=== PATIENT | female | born 1935 | race Caucasian/White ===

== ENCOUNTER 2017-01-16 13:57 | Inpatient (IN) | payer MEDICARE ==
[~2017-01-16 13:57] MED LIST: ALBUTEROL HFA 1 INH INHALER INHALATION PRN; GLYCERIN ADULT 2 GM SUPP.RECT PR PRN; HOME MEDICATION LIST NEEDED 1 EA EACH MC ONE; MAG-AL PLUS XS SUSP 30 ML UDC PO PRN; MAGNESIUM HYDROXIDE 30 ML UDC PO PRN; METHIMAZOLE 5 MG PO SCH; TIOTROPIUM BROMIDE 18 MCG CAP.W.DEV INHALATION SCH
[2017-01-16] MEDS ORDERED: GLYCERIN ADULT 2 GM SUPP.RECT RECTAL PRN (14:24)
[2017-01-16] MEDS ORDERED: SENNOSIDES 8.6 MG TABLET PO ONE (15:14)
[2017-01-16] MEDS: POLYETHYLENE GLYCOL 3350 17 GM POWD.PACK PO PRN (15:30)
[2017-01-16] MEDS: FLUTICASONE/SALMETEROL 250/50 14 INH DISK INHALATION SCH ×2 (15:31→21:47)
[2017-01-16] MEDS: CLOTRIMAZOLE 10 MG TROCHE MUCOUS MEM SCH ×2 (15:54→20:02)
--- NOTE | 2017-01-16 15:57 | HISTORY & PHYSICAL ---
DATE OF ADMISSION TO [facility] BED: 01/16/17 PRIMARY CARE PHYSICIAN: Dr. Will. REASON FOR TRANSFER: Proximity to family status post total knee replacement by Dr. Alfonso with prior rehab care at [facility]. HISTORY OF PRESENT ILLNESS: Briefly, the patient is a 81-year-old lady with a history of brain aneurysm times 2, fibromyalgia, asthma, atrial fibrillation, prior breast masses, COPD, GERD, recurrent urinary tract infections, back surgery, carotid endarterectomy, hysterectomy, a right TKA now status post left TKA, left hip arthroplasty and prior tonsillectomy, who also has rheumatoid arthritis and a history of uterine cancer. Because of worsening arthritis and decreased mobility, she underwent left total knee arthroplasty by Dr. Anuj Alfonso at [facility] and was hospitalized from the through the and then subsequently transferred to the [facility] for rehabilitation. She and her daughter know that she has chronic dysphagia and intermittent emesis they initially attributed to gabapentin. Dr. Will her primary care physician had decreased the gabapentin from 300 mg t.i.d. to 100 mg t.i.d. and this largely helped though was noted to have intermittent dysphagia and emesis though without blood or coffee-ground emesis intermittently throughout the day. There is no globus sensation and despite the emesis she is still able to tolerate a regular diet. It is noted that she has some abdominal fullness and discomfort and per her history last bowel movement was prior to surgery on the . She did receive Milk of Magnesia without benefit. She was initially treated with Lovenox to decrease her risk of perioperative DVT as well because her warfarin was held perioperatively which she takes for atrial fibrillation as stroke prevention. She has resumed Coumadin at 1 mg daily and most recent INR was on January 14 and was 2.6 within therapeutic range. She had adequate pain control with oxycodone though notes that if she does not take it regularly she does have increasing pain and then takes an hour for oxycodone to work and has requested a scheduled dose as well as a p.r.n. dose. There is no fever, no cough, no cold, congestion, and remainder of review of systems is per HPI. PAST MEDICAL HISTORY: Notable for 1. Cerebral aneurysms times 2. 2. Bullous emphysema with prior heavy smoking but quit in October of 2015. 3. Prior stroke in the 1970s. 4. Coronary artery calcification but no prior infarction and no angina symptoms. 5. Mixed COPD. 6. Dysphagia that is partly related to GERD as well as may be med related. 7. Rumination. 8. Fibromyalgia. 9. Left hip arthroplasty. 10. Right knee arthroplasty. 11. A history of uterine cancer. 12. Hypoxemia related to COPD on chronic oxygen. 13. Bilateral breast masses biopsied and benign. 14. Mixed dyslipidemia. 15. Rheumatoid arthritis. 16. Recurrent thrush. ALLERGIES: She is allergic to codeine but tolerates oxycodone and has no hives or pruritus since taking this at her acute rehab facility. FAMILY HISTORY: Notable for father passing away from myocardial infarction at age 97 and her mother had Alzheimers disease. SOCIAL HISTORY: She drinks 2 drinks about every 5 months. Lives in [place] and currently lives with her daughter though did have a home in [place]. Prior 20+ pack year smoking history though quit October 2015. MEDICATIONS: Include Advair 250/50 mcg, 1 inhalation b.i.d. Aspirin 81 mg daily. Previously was atorvastatin 80 mg daily, changed to Crestor 40 mg daily. Gabapentin 100 mg t.i.d. though recently changed to 200 mg h.s. Protonix 40 mg q. morning. Oxygen 3 liters by nasal cannula. Spiriva 1 inhalation in the morning. ProAir 2 puffs q.4h as needed for shortness of breath. Warfarin 1 mg daily with most recent INR as described above January 14 of 2.6. Seroquel 50 mg at h.s. Tapazole 50 mg daily query started for hyperthyroidism. Tramadol 50 mg q.6h p.r.n. PHYSICAL EXAMINATION VITAL SIGNS: Temp is 36.4, blood pressure in the 140s/50s, with heart rate in the 80s, respiratory rate 16, satting 93% on 3 liters. Her weight is 79.5 kg. GENERAL: She is pleasant, no apparent distress. No jaundice, anemia, cyanosis , clubbing or lymphadenopathy appreciated. NECK: Supple. No masses or bruits. She does have scars from prior carotid endarterectomy. CARDIAC: S1, S2 with a soft murmur and right upper sternal border radiation to right carotid but with maintained upstroke consistent with aortic sclerosis and possible mild stenosis. RESPIRATORY: Shows good air entry to the basis but prolonged expiratory phase consistent with obstructive lung disease. No adventitial sounds otherwise noted. She has no sacral edema. ABDOMEN: Distended. She is nontender in the right lower and right upper quadrant though left flank and left lower quadrant she has palpable stool with discomfort to palpation. No further masses appreciated and bowel sounds are present. EXTREMITIES: She has 2+ edema in her left lower extremity and trace edema in the right lower extremity. The dressings from her TKA are in place and have not been changed since surgery. ASSESSMENT 1. Need for acute rehabilitation. 2. Status post left total knee replacement. 3. Query hyperthyroidism on Tapazole. 4. Acute on chronic constipation with history of irritable bowel syndrome. 5. Persistent emesis with dysphagia and components of rumination likely related to depression. 6. COPD mixed type on oxygen for hypoxia. 7. Fibromyalgia. 8. History of rheumatoid arthritis not on disease modifying anti-rheumatic drugs. 9. Recurrent thrush. 10. Dyslipidemia. PLAN: Will continue her usual medications, followup INR and dose adjust warfarin to maintain therapeutic INR for perioperative DVT prophylaxis as well as for stroke prevention with atrial fibrillation. She is not currently on rate controlling medications but is sinus rhythm and will continue to follow vitals and consider EKG and/or telemetry if needed. Regarding her dysphagia, rumination and possible history of globus, although no current globus sensation , will request an esophagram with barium upper GI. Have continued her oxygen and pulmonary medications including Spiriva and Advair with intermittent ProAir as needed. Have amended her gabapentin after discussion with her daughter to 200 mg h.s. as they feel this contributes some to her nausea and emesis. Scheduled q.8h. oxycodone in addition to her p.r.n. tramadol and p.r.n. oxycodone doses. With her constipation, have requested p.r.n. MiraLax and will schedule Senokot as well. PT/OT evaluations for evaluation and treatment and will change dressing, and to say the patient will require less than a weeks worth of therapy prior to being able to transition home. MTDD
[2017-01-16] MEDS ORDERED: WARFARIN SODIUM 2 MG TABLET PO SCH (16:00)
[2017-01-16 19:55] LABS: URINE RBC NONE SEEN (0-5/hpf)
[2017-01-16] MEDS: traMADol HCL 50 MG TABLET PO PRN (20:02)
[2017-01-16 20:09] LABS: URINE APPEARANCE CLEAR; URINE BILIRUBIN NEGATIVE (NEGATIVE); URINE BLOOD NEGATIVE (NEGATIVE); URINE COLOR YELLOW; URINE GLUCOSE NORMAL (NEGATIVE); URINE KETONE NEGATIVE (NEGATIVE); URINE LEUKOCYTE ESTERASE NEGATIVE (NEGATIVE); URINE NITRITE NEGATIVE (NEGATIVE); URINE PROTEIN NEGATIVE (NEG - TRACE); URINE UROBILINOGEN 0.2mg/dL (Normal) (NEG-1mg/dL)
[2017-01-16 20:10] LABS: URINE MUCUS UP TO 50%/lpf (Up to 25%); URINE WBC 0-4/hpf (0-4/hpf)
[2017-01-16] MEDS ORDERED: QUETIAPINE FUMARATE 100 MG TABLET PO SCH (21:00)
[2017-01-16] MEDS: ROSUVASTATIN CALCIUM 20 MG TABLET PO SCH (21:42)
[2017-01-16] MEDS: GABAPENTIN 100 MG CAPSULE PO SCH ×2 (21:43→23:03)
[2017-01-16] MEDS: QUETIAPINE FUMARATE 25 MG TABLET PO SCH (21:43)
[2017-01-17] MEDS: CLOTRIMAZOLE 10 MG TROCHE MUCOUS MEM SCH ×5 (03:58→20:14)
[2017-01-17] MEDS: PANTOPRAZOLE 40 MG TABLET PO SCH (06:07)
[2017-01-17 07:47] LABS: INR W/O CAPI DRAW 1.2 (0.8-1.2)
[2017-01-17 07:57] LABS: BASOPHILS 0.5 % (0.0-2.0); EOSINOPHILS 5.1 % (0.0-6.0); EOSINOPHILS# 0.4 X 10^3uL (0.0-0.4); HEMATOCRIT 25.4 % (36.0-48.0); HEMOGLOBIN 8.2 g/dL (12.0-16.0); LYMPHOCYTES 23.7 % (20.0-40.0); MEAN CELL VOLUME 85.7 fL (80.0-100.0); MEAN CORPUS. HGB CONCENTRATION 32.4 g/dL (32.0-36.0); MEAN CORPUSCULAR HEMOGLOBIN 27.8 pg (29.0-35.0); MEAN PLATELET VOLUME 6.5 fL (7.4-10.4); MONOCYTES 10.7 % (2.0-10.0); MONOCYTES# 0.9 X 10^3uL (0.2-1.0); NEUTROPHILS# 5.3 X 10^3uL (2.6-6.7); PLATELET COUNT 474 X 10^3uL (130-440); RED CELL DISTRIBUTION WIDTH 13.6 % (11.5-14.5); WHITE BLOOD COUNT 8.6 X 10^3uL (3.9-10.7)
[2017-01-17 08:11] LABS: RED BLOOD COUNT 2.96 X 10^6uL (4.20-6.10)
[2017-01-17 08:28] LABS: ALBUMIN 3.1 g/dL (3.5-5.0); ALKALINE PHOSPHATASE 94 U/L (38-126); ALT 36 U/L (9-52); AST 19 U/L (14-36); BILIRUBIN, DIRECT 0.3 mg/dL (0.0-0.4); BILIRUBIN, TOTAL 0.9 mg/dL (0.2-1.3); BLOOD UREA NITROGEN 13 mg/dL (7-17); CALCIUM 8.7 mg/dL (8.4-10.2); CHLORIDE 105 mmol/L (98-107); CREATININE 0.8 mg/dL (0.5-1.0); EST GLOMERULAR FILTRATION RATE > 60 mL/min; GLUCOSE 87 mg/dL (70-100); POTASSIUM 4.5 mmol/L (3.5-5.1); SODIUM 140 mmol/L (137-145); TOTAL PROTEIN 6.1 g/dL (6.3-8.2)
[2017-01-17] MEDS: FLUTICASONE/SALMETEROL 250/50 14 INH DISK INHALATION SCH ×2 (08:34→20:14)
[2017-01-17] MEDS: TIOTROPIUM BROMIDE 18 MCG CAP.W.DEV INHALATION SCH (08:34)
[2017-01-17] MEDS: METHIMAZOLE 5 MG TABLET PO SCH (08:35)
--- NOTE | 2017-01-17 08:44 | PROGRESS NOTE: IM APSO ---
Assessment and Plan - Date of Encounter Date of Encounter: 01/17/17 (1) Status post total knee replacement, left Status: Acute Assessment and plan: left knee, pain control improved, PT/OT started, resuming DVT prophylaxis Current Visit: Yes (2) Anemia following surgery Status: Acute Assessment and plan: concern for bowel losses with dysphagia/constipation, esophagram pending, may need Cscope. Venofer. f/u hgb and retic and if needed transfuse Current Visit: Yes (3) Bullous emphysema Status: Chronic Assessment and plan: inhalers/oxygen Current Visit: Yes (4) H/O: stroke Status: Chronic Assessment and plan: minimal sequalae Current Visit: Yes (5) Dysphagia Status: Chronic Current Visit: Yes (6) Hypoxia Status: Chronic Current Visit: Yes (7) Thrush Status: Acute Current Visit: Yes - Time Spent With Patient Total time spent with greater than 50% in coordination of care (as documented) at patient's floor/unit and/or counseling patient: Greater than 35 minutes IM: PN Subjective General: good appetite, pain, other (spoke about anemia, anticoagulation, risk for further drop and stress on heart as well need for possible transfusion. She is amenable to PRBC's if needed but prefer to try vitamins first. Dyspepsia /stomach pain with PO iron. Give venofer, recheck retic count, if developes tachycardia/rapid Afib then PRBC's), no fatigue, no fever, no chills HEENT: no headache, no sore throat Cardiovascular: no chest pain, no chest pressure Respiratory: no cough, no sputum, no SOB Gastrointestinal: bloating, nausea, constipation (one small BM since before surgery. Will need bowel evaluation with anemia/constipation ideally Cscope though BaEnema/flex sig if unable to position for studies with knee surgery), other (dysphagia persists, amenable to esophagram for Friday), no abdominal pain, no vomiting Genitourinary: no dysuria Musculoskeletal: pain, swelling (pain and swelling left knee, largely controlled on scheduled oxycodone and tolerating without pruritis) IM: PN Objective Exam - I&O/Vital Signs I&O: Intake & Output 01/16/17 01/17/17 01/17/17 21:59 05:59 13:59 Intake Total 400 300 Output Total 0 475 Balance 400 -175 Weight 79.5 kg Intake: Oral 400 300 Output: Urine 475 Stool 0 Other: Urine Appearance Clear Urine Color Yellow Yellow Voiding Method Toilet Toilet # Voids 1 2 Vital Signs: Last Vital Signs Temp 36.4 C L 01/16/17 14:31 Pulse 83 01/16/17 14:31 Resp 16 01/16/17 14:31 BP 142/52 01/16/17 14:31 Pulse Ox 93 01/16/17 21:00 Oxygen Flow Rate 3 Oxygen Delivery Method Nasal Cannula - Constitutional General appearance: Present: obese - Head Head exam: Present: atraumatic - Eye Eye exam: Present: EOMI, normal appearance, PERRL. Absent: conjunctival injection - ENT ENT exam: Present: mucous membranes moist - Neck Neck exam: Present: full ROM. Absent: lymphadenopathy - Respiratory Respiratory exam: Present: CTAB (prolonged exp phase with airtrapping but no wheeze) - Cardiovascular Cardiovascular exam: Present: RRR (not currently in Afib) - GI/Abdominal GI/Abdominal exam: Present: distended, hypoactive bowel sounds, soft, tenderness (left lower quadrant and palp stool). Absent: bruit - Rectal Rectal exam: Present: deferred - Extremities Exam Extremities exam: Present: joint swelling (wound redressed, scant discharge, expected edema, no erythema/warmth), normal capillary refill. Absent: calf tenderness - Allied Health Notes Allied health notes reviewed: nursing - Lab Labs: Laboratory Last Values WBC 8.6 X 10^3uL (3.9-10.7) 01/17/17 07:40 RBC 2.96 X 10^6uL (4.20-6.10) L 01/17/17 07:40 Hgb 8.2 g/dL (12.0-16.0) L 01/17/17 07:40 Hct 25.4 % (36.0-48.0) L 01/17/17 07:40 MCV 85.7 fL (80.0-100.0) 01/17/17 07:40 MCH 27.8 pg (29.0-35.0) L 01/17/17 07:40 MCHC 32.4 g/dL (32.0-36.0) 01/17/17 07:40 RDW 13.6 % (11.5-14.5) 01/17/17 07:40 Plt Count 474 X 10^3uL (130-440) H 01/17/17 07:40 MPV 6.5 fL (7.4-10.4) L 01/17/17 07:40 Neutrophils % 60.0 % (54.0-75.0) 01/17/17 07:40 Lymphocytes % 23.7 % (20.0-40.0) 01/17/17 07:40 Eosinophils % 5.1 % (0.0-6.0) 01/17/17 07:40 Basophils % 0.5 % (0.0-2.0) 01/17/17 07:40 Neutrophils # 5.3 X 10^3uL (2.6-6.7) 01/17/17 07:40 Lymphocytes # 2.0 X 10^3uL (0.8-3.8) 01/17/17 07:40 Monocytes 10.7 % (2.0-10.0) H 01/17/17 07:40 Monocytes # 0.9 X 10^3uL (0.2-1.0) 01/17/17 07:40 Eosinophils # 0.4 X 10^3uL (0.0-0.4) 01/17/17 07:40 Basophils # 0.0 X 10^3uL (0.0-0.1) 01/17/17 07:40 PT Cancelled 01/17/17 07:40 Capillary INR 1.2 (0.8-1.2) 01/17/17 07:40 INR Cancelled 01/17/17 07:40 Urine Color Yellow 01/16/17 19:45 Urine Appearance Clear 01/16/17 19:45 Urine pH 7.0 (5-7) 01/16/17 19:45 Ur Specific [place] 1.020 (0.001-1.035) 01/16/17 19:45 Urine Protein Negative (NEG - TRACE) 01/16/17 19:45 Urine Ketones Negative (NEGATIVE) 01/16/17 19:45 Urine Blood Negative (NEGATIVE) 01/16/17 19:45 Urine Nitrate Negative (NEGATIVE) 01/16/17 19:45 Urine Bilirubin Negative (NEGATIVE) 01/16/17 19:45 Urine Urobilinogen 0.2mg/dl (normal) (NEG-1mg/dL) 01/16/17 19:45 Ur Leukocyte Esterase Negative (NEGATIVE) 01/16/17 19:45 Urine RBC None seen (0-5/hpf) 01/16/17 19:45 Urine WBC 0-4/hpf (0-4/hpf) 01/16/17 19:45 Ur Squamous Epith Cells 5-10/hpf (<= 15/hpf) 01/16/17 19:45 Urine Bacteria 10-20 organisms/hpf (<10/hpf) A 01/16/17 19:45 Urine Mucus Up to 50%/lpf (Up to 25%) A 01/16/17 19:45 Urine Glucose Normal (NEGATIVE) 01/16/17 19:45 Quality Questions - VTE Prophylaxis Assessment VTE Present on Admission?: No Patient at risk for venous thromboembolism?: Yes VTE Risk Level: Moderate Risk VTE Medical Contraindication: N/A-VTE Prophylaxis ordered
[2017-01-17 08:45] LABS: FREE T4 1.37 ng/dL (0.78-2.19)
[2017-01-17 08:59] LABS: THYROID STIMULATING HORMONE 0.36 uIU/mL (0.47-4.68)
[2017-01-17] MEDS: ONDANSETRON ODT 4 MG TAB.RAPDIS PO PRN ×2 (08:59→12:32)
[2017-01-17] MEDS: POLYETHYLENE GLYCOL 3350 17 GM POWD.PACK PO SCH ×3 (09:04→16:56)
[2017-01-17] MEDS: WARFARIN SODIUM 2 MG TABLET PO SCH ×2 (11:05→16:52)
[2017-01-17] MEDS: ENOXAPARIN SODIUM 40 MG/0.4 ML SYR SUBCUT SCH (11:05)
[2017-01-17] MEDS: IRON SUCROSE COMPLEX 200 MG in NORMAL SALINE 100 ML IV SCH (11:07)
[2017-01-17] MEDS: CIPROFLOXACIN HCL 250 MG TABLET PO SCH ×2 (11:07→21:49)
[2017-01-17] MEDS: traMADol HCL 50 MG TABLET PO PRN (19:08)
[2017-01-17] MEDS: QUETIAPINE FUMARATE 25 MG TABLET PO SCH (20:14)
[2017-01-17] MEDS: GABAPENTIN 100 MG CAPSULE PO SCH (20:14)
[2017-01-17] MEDS: ROSUVASTATIN CALCIUM 20 MG TABLET PO SCH (20:14)
[2017-01-18] MEDS: CLOTRIMAZOLE 10 MG TROCHE MUCOUS MEM SCH ×5 (03:41→21:03)
[2017-01-18] MEDS: PANTOPRAZOLE 40 MG TABLET PO SCH (06:22)
[2017-01-18 06:59] LABS: BASOPHIL# 0.1 X 10^3uL (0.0-0.1); BASOPHILS 1.1 % (0.0-2.0); EOSINOPHILS# 0.5 X 10^3uL (0.0-0.4); HEMATOCRIT 26.1 % (36.0-48.0); HEMOGLOBIN 8.4 g/dL (12.0-16.0); LYMPHOCYTES 24.8 % (20.0-40.0); MEAN CELL VOLUME 85.6 fL (80.0-100.0); MEAN CORPUS. HGB CONCENTRATION 32.2 g/dL (32.0-36.0); MEAN CORPUSCULAR HEMOGLOBIN 27.5 pg (29.0-35.0); MEAN PLATELET VOLUME 6.7 fL (7.4-10.4); MONOCYTES 11.9 % (2.0-10.0); NEUTROPHILS 56.2 % (54.0-75.0); NEUTROPHILS# 4.5 X 10^3uL (2.6-6.7); PLATELET COUNT 491 X 10^3uL (130-440); RED BLOOD COUNT 3.05 X 10^6uL (4.20-6.10); RED CELL DISTRIBUTION WIDTH 13.8 % (11.5-14.5); WHITE BLOOD COUNT 8.1 X 10^3uL (3.9-10.7)
[2017-01-18 07:10] LABS: INR 1.4
[2017-01-18 07:13] LABS: BLOOD UREA NITROGEN 13 mg/dL (7-17); CALCIUM 8.8 mg/dL (8.4-10.2); CHLORIDE 105 mmol/L (98-107); CREATININE 0.8 mg/dL (0.5-1.0); EST GLOMERULAR FILTRATION RATE > 60 mL/min; GLUCOSE 100 mg/dL (70-100); POTASSIUM 4.1 mmol/L (3.5-5.1); SODIUM 139 mmol/L (137-145)
[2017-01-18] MEDS: ENOXAPARIN SODIUM 40 MG/0.4 ML SYR SUBCUT SCH (08:24)
[2017-01-18] MEDS: METHIMAZOLE 5 MG TABLET PO SCH (08:25)
[2017-01-18] MEDS: TIOTROPIUM BROMIDE 18 MCG CAP.W.DEV INHALATION SCH (08:25)
[2017-01-18] MEDS: FLUTICASONE/SALMETEROL 250/50 14 INH DISK INHALATION SCH ×2 (08:26→21:03)
--- NOTE | 2017-01-18 09:06 | PROGRESS NOTE: IM APSO ---
Assessment and Plan - Date of Encounter Date of Encounter: 01/18/17 (1) Status post total knee replacement, left Status: Acute Assessment and plan: Continues to gradually improve. Working with physical therapy and occupational therapy. On warfarin, and INR is slowly increasing. Continues to have postoperative anemia but slight improvement. Receiving IV iron. No indication for transfusion at this time. She remains on Lovenox prophylactic doses until her INR is therapeutic. Current Visit: Yes (2) Anemia following surgery Status: Acute Assessment and plan: See above. Postoperative period however, concern for possible GI loss with ongoing dysphagia, constipation. She is now on IV iron. Holding off on transfusion considering hemodynamic stability and absence of symptoms of hypoperfusion. Will heme check stool. Reticulocyte count is pending. Esophagram is pending for Friday. Current Visit: Yes (3) Dysphagia Status: Chronic Assessment and plan: Esophagram pending as above. Adequate oral intake. She remains on acid suppression. Current Visit: Yes (4) Urinary tract infection in female Status: Acute Assessment and plan: Culture is still pending. Symptoms have improved on ciprofloxacin. Afebrile. No evidence of pyelonephritis or urosepsis. Continue same treatment. Current Visit: Yes (5) H/O: stroke Status: Chronic Assessment and plan: No acute/new symptoms. Follow clinically. Anticoagulation issues as above. Current Visit: Yes (6) Atrial fibrillation, controlled Status: Acute Assessment and plan: Currently sounds to be in sinus rhythm. Rate is good. As above, on warfarin with gradually increasing INR. Still subtherapeutic. Current Visit: Yes (7) Bullous emphysema Status: Chronic Assessment and plan: No evidence of pulmonary decompensation from her baseline. Oxygenating well. Mild cough. Follow for evidence of worsening but currently no evidence of significant pulmonary infection. Current Visit: Yes (8) Low TSH level Status: Acute Assessment and plan: Low TSH with borderline elevated free T4. Significance unclear. She is on methimazole. Continue same for now. Current Visit: Yes (9) DVT prophylaxis Status: Acute Assessment and plan: Lovenox. Warfarin has been started, and she remains subtherapeutic. No change in dose, and will reassess INR in the morning. Current Visit: Yes - Time Spent With Patient Total time spent with greater than 50% in coordination of care (as documented) at patient's floor/unit and/or counseling patient: 16-24 minutes IM: PN Subjective General: fatigue, good appetite, pain, no confusion, no fever, no chills HEENT: no headache Cardiovascular: no chest pain, no chest pressure, no palpitations Respiratory: cough (mild), no sputum, no wheeze Gastrointestinal: bloating, constipation, other (dysphagia), no abdominal pain, no nausea, no vomiting Genitourinary: no dysuria (resolved) Musculoskeletal: pain, swelling (pain and swelling left knee, largely controlled on scheduled oxycodone and tolerating without pruritis) Integumentary: wound (incisional wound, some excoriations and skin breakdown in the popliteal area), no rashes Neurological: no headache IM: PN Objective Exam - I&O/Vital Signs I&O: Intake & Output 01/17/17 01/18/17 01/18/17 21:59 05:59 13:59 Intake Total 340 Balance 340 Intake: Oral 340 Other: Urine Appearance Clear Urine Color Yellow Stool Size Moderate Stool Characteristics Formed Hard Brown Voiding Method Toilet Toilet # Voids 4 # Bowel Movements 1 Vital Signs: Last Vital Signs Temp 36.3 C L 01/18/17 06:04 Pulse 83 01/18/17 06:04 Resp 15 01/18/17 06:04 BP 127/49 01/18/17 06:04 Pulse Ox 91 01/18/17 06:04 Oxygen Flow Rate 3 Oxygen Delivery Method Nasal Cannula - Constitutional General appearance: Present: obese. Absent: acute distress - Head Head exam: Present: atraumatic - Eye Eye exam: Present: EOMI, normal appearance, PERRL. Absent: conjunctival injection - ENT ENT exam: Present: mucous membranes moist - Neck Neck exam: Present: full ROM. Absent: lymphadenopathy - Respiratory Respiratory exam: Present: rales (bibasilar, mild). Absent: accessory muscle use, rhonchi, wheezes - Cardiovascular Cardiovascular exam: Present: RRR (not currently in Afib). Absent: S3, S4 - GI/Abdominal GI/Abdominal exam: Present: distended (mildly), hypoactive bowel sounds, soft, tenderness (left lower quadrant). Absent: bruit - Rectal Rectal exam: Present: deferred - Extremities Exam Extremities exam: Present: calf tenderness (bilateral, diffuse), joint swelling (wound redressed, scant discharge, expected edema, no erythema/warmth). Absent : Ian's Sign - Neurological Exam Neurological exam: Present: oriented X3. Absent: altered - Psychiatric Psychiatric exam: Absent: anxious, depressed - Skin Skin exam: Absent: rash - Allied Health Notes Allied health notes reviewed: nursing - Lab Labs: Laboratory Last Values WBC 8.1 X 10^3uL (3.9-10.7) 01/18/17 06:40 RBC 3.05 X 10^6uL (4.20-6.10) L 01/18/17 06:40 Hgb 8.4 g/dL (12.0-16.0) L 01/18/17 06:40 Hct 26.1 % (36.0-48.0) L 01/18/17 06:40 MCV 85.6 fL (80.0-100.0) 01/18/17 06:40 MCH 27.5 pg (29.0-35.0) L 01/18/17 06:40 MCHC 32.2 g/dL (32.0-36.0) 01/18/17 06:40 RDW 13.8 % (11.5-14.5) 01/18/17 06:40 Plt Count 491 X 10^3uL (130-440) H 01/18/17 06:40 MPV 6.7 fL (7.4-10.4) L 01/18/17 06:40 Neutrophils % 56.2 % (54.0-75.0) 01/18/17 06:40 Lymphocytes % 24.8 % (20.0-40.0) 01/18/17 06:40 Eosinophils % 6.0 % (0.0-6.0) 01/18/17 06:40 Basophils % 1.1 % (0.0-2.0) 01/18/17 06:40 Neutrophils # 4.5 X 10^3uL (2.6-6.7) 01/18/17 06:40 Lymphocytes # 2.0 X 10^3uL (0.8-3.8) 01/18/17 06:40 Monocytes 11.9 % (2.0-10.0) H 01/18/17 06:40 Monocytes # 1.0 X 10^3uL (0.2-1.0) 01/18/17 06:40 Eosinophils # 0.5 X 10^3uL (0.0-0.4) H 01/18/17 06:40 Basophils # 0.1 X 10^3uL (0.0-0.1) 01/18/17 06:40 Retic Count Cancelled 01/18/17 06:40 PT 19.0 sec (13.0-16.6) H 01/18/17 06:40 Capillary INR 1.2 (0.8-1.2) 01/17/17 07:40 INR 1.4 01/18/17 06:40 Sodium 139 mmol/L (137-145) 01/18/17 06:40 Potassium 4.1 mmol/L (3.5-5.1) 01/18/17 06:40 Chloride 105 mmol/L (98-107) 01/18/17 06:40 Carbon Dioxide 27 mmol/L (22-30) 01/18/17 06:40 BUN 13 mg/dL (7-17) 01/18/17 06:40 Creatinine 0.8 mg/dL (0.5-1.0) 01/18/17 06:40 GFR Calculation > 60 mL/min 01/18/17 06:40 Glucose 100 mg/dL (70-100) 01/18/17 06:40 Calcium 8.8 mg/dL (8.4-10.2) 01/18/17 06:40 Total Bilirubin 0.9 mg/dL (0.2-1.3) 01/17/17 07:40 Direct Bilirubin 0.3 mg/dL (0.0-0.4) 01/17/17 07:40 AST 19 U/L (14-36) 01/17/17 07:40 ALT 36 U/L (9-52) 01/17/17 07:40 Alkaline Phosphatase 94 U/L (38-126) 01/17/17 07:40 Total Protein 6.1 g/dL (6.3-8.2) L D 01/17/17 07:40 Albumin 3.1 g/dL (3.5-5.0) L D 01/17/17 07:40 TSH 0.36 uIU/mL (0.47-4.68) L D 01/17/17 07:40 Free T4 1.37 ng/dL (0.78-2.19) 01/17/17 07:40 Urine Color Yellow 01/16/17 19:45 Urine Appearance Clear 01/16/17 19:45 Urine pH 7.0 (5-7) 01/16/17 19:45 Ur Specific [place] 1.020 (0.001-1.035) 01/16/17 19:45 Urine Protein Negative (NEG - TRACE) 01/16/17 19:45 Urine Ketones Negative (NEGATIVE) 01/16/17 19:45 Urine Blood Negative (NEGATIVE) 01/16/17 19:45 Urine Nitrate Negative (NEGATIVE) 01/16/17 19:45 Urine Bilirubin Negative (NEGATIVE) 01/16/17 19:45 Urine Urobilinogen 0.2mg/dl (normal) (NEG-1mg/dL) 01/16/17 19:45 Ur Leukocyte Esterase Negative (NEGATIVE) 01/16/17 19:45 Urine RBC None seen (0-5/hpf) 01/16/17 19:45 Urine WBC 0-4/hpf (0-4/hpf) 01/16/17 19:45 Ur Squamous Epith Cells 5-10/hpf (<= 15/hpf) 01/16/17 19:45 Urine Bacteria 10-20 organisms/hpf (<10/hpf) A 01/16/17 19:45 Urine Mucus Up to 50%/lpf (Up to 25%) A 01/16/17 19:45 Urine Glucose Normal (NEGATIVE) 01/16/17 19:45
[2017-01-18] MEDS: IRON SUCROSE COMPLEX 200 MG in NORMAL SALINE 100 ML IV SCH (11:38)
[2017-01-18] MEDS: CIPROFLOXACIN HCL 250 MG TABLET PO SCH ×2 (11:42→21:03)
[2017-01-18] MEDS: traMADol HCL 50 MG TABLET PO PRN (12:33)
[2017-01-18] MEDS: WARFARIN SODIUM 2 MG TABLET PO SCH (17:04)
[2017-01-18] MEDS: hydrOXYzine HCL 10 MG TABLET PO PRN (17:59)
[2017-01-18] MEDS: GABAPENTIN 100 MG CAPSULE PO SCH (21:03)
[2017-01-18] MEDS: ROSUVASTATIN CALCIUM 20 MG TABLET PO SCH (21:03)
[2017-01-18] MEDS: QUETIAPINE FUMARATE 25 MG TABLET PO SCH (21:03)
[2017-01-19] MEDS: CLOTRIMAZOLE 10 MG TROCHE MUCOUS MEM SCH ×5 (06:47→20:00)
[2017-01-19] MEDS: PANTOPRAZOLE 40 MG TABLET PO SCH (06:48)
[2017-01-19 07:18] LABS: BASOPHIL# 0.1 X 10^3uL (0.0-0.1); BASOPHILS 0.8 % (0.0-2.0); EOSINOPHILS 4.8 % (0.0-6.0); EOSINOPHILS# 0.4 X 10^3uL (0.0-0.4); HEMATOCRIT 24.9 % (36.0-48.0); HEMOGLOBIN 8.1 g/dL (12.0-16.0); LYMPHOCYTES 25.4 % (20.0-40.0); LYMPHOCYTES# 2.3 X 10^3uL (0.8-3.8); MEAN CELL VOLUME 85.2 fL (80.0-100.0); MEAN CORPUS. HGB CONCENTRATION 32.7 g/dL (32.0-36.0); MEAN CORPUSCULAR HEMOGLOBIN 27.9 pg (29.0-35.0); MEAN PLATELET VOLUME 6.2 fL (7.4-10.4); MONOCYTES 11.7 % (2.0-10.0); NEUTROPHILS 57.3 % (54.0-75.0); NEUTROPHILS# 5.2 X 10^3uL (2.6-6.7); PLATELET COUNT 494 X 10^3uL (130-440); RED BLOOD COUNT 2.92 X 10^6uL (4.20-6.10); RED CELL DISTRIBUTION WIDTH 14.1 % (11.5-14.5)
[2017-01-19 07:22] LABS: INR 1.4
[2017-01-19 07:29] LABS: BLOOD UREA NITROGEN 10 mg/dL (7-17); CALCIUM 8.8 mg/dL (8.4-10.2); CHLORIDE 107 mmol/L (98-107); CREATININE 0.7 mg/dL (0.5-1.0); EST GLOMERULAR FILTRATION RATE > 60 mL/min; GLUCOSE 100 mg/dL (70-100); POTASSIUM 4.1 mmol/L (3.5-5.1); SODIUM 138 mmol/L (137-145)
[2017-01-19] MEDS: hydrOXYzine HCL 10 MG TABLET PO PRN (08:09)
[2017-01-19] MEDS: FLUTICASONE/SALMETEROL 250/50 14 INH DISK INHALATION SCH ×2 (08:10→20:00)
[2017-01-19] MEDS: METHIMAZOLE 5 MG TABLET PO SCH (08:10)
[2017-01-19] MEDS: TIOTROPIUM BROMIDE 18 MCG CAP.W.DEV INHALATION SCH (08:10)
[2017-01-19] MEDS: IRON SUCROSE COMPLEX 200 MG in NORMAL SALINE 100 ML IV SCH (08:11)
[2017-01-19] MEDS: ENOXAPARIN SODIUM 40 MG/0.4 ML SYR SUBCUT SCH (08:11)
[2017-01-19] MEDS ORDERED: WARFARIN SODIUM 2 MG TABLET PO SCH (09:15)
[2017-01-19] MEDS: traMADol HCL 50 MG TABLET PO PRN ×2 (10:13→20:02)
[2017-01-19] MEDS: CIPROFLOXACIN HCL 250 MG TABLET PO SCH ×2 (10:17→21:53)
[2017-01-19] MEDS ORDERED: BENZOCAINE/MENTHOL 1 EACH LOZENGE PO PRN (11:20)
[2017-01-19] MEDS: ROSUVASTATIN CALCIUM 20 MG TABLET PO SCH (20:00)
[2017-01-19] MEDS: GABAPENTIN 100 MG CAPSULE PO SCH (20:00)
[2017-01-19] MEDS: QUETIAPINE FUMARATE 25 MG TABLET PO SCH (20:00)
[2017-01-20] MEDS: CLOTRIMAZOLE 10 MG TROCHE MUCOUS MEM SCH ×5 (03:53→20:17)
[2017-01-20] MEDS: PANTOPRAZOLE 40 MG TABLET PO SCH (06:32)
[2017-01-20] MEDS: traMADol HCL 50 MG TABLET PO PRN ×2 (07:05→13:22)
[2017-01-20 07:17] LABS: INR 1.4
[2017-01-20] MEDS: METHIMAZOLE 5 MG TABLET PO SCH (08:04)
[2017-01-20] MEDS: FLUTICASONE/SALMETEROL 250/50 14 INH DISK INHALATION SCH ×2 (08:07→20:17)
[2017-01-20] MEDS: TIOTROPIUM BROMIDE 18 MCG CAP.W.DEV INHALATION SCH (08:07)
--- NOTE | 2017-01-20 08:45 | PROGRESS NOTE: IM APSO ---
Assessment and Plan - Date of Encounter Date of Encounter: 01/20/17 (1) Status post total knee replacement, left Status: Acute Assessment and plan: left knee, pain control improved, PT/OT started, resuming DVT prophylaxis pending therapeutic warfarin. Incision without dihiescence Current Visit: Yes (2) Anemia following surgery Status: Acute Assessment and plan: concern for bowel losses with dysphagia/constipation, esophagram pending, may need Cscope (though 2013 was reported as normal), hemoccult negative. Venofer received x3. f/u hgb and retic and if needed transfuse (though currently hemodynamically stable and no Afib) With painful neuropathy, check B12 ( indices are microcytic but could be mixed prior to surgical blood loss) Current Visit: Yes (3) Bullous emphysema Status: Chronic Assessment and plan: inhalers/oxygen, minimal adventitial and tolerating home O2 Current Visit: Yes (4) H/O: stroke Status: Chronic Assessment and plan: minimal sequalae Current Visit: Yes (5) Dysphagia Status: Chronic Assessment and plan: chronic and note component of rumination and reflux. Ba UGI to evaluate ( likely to show some presbyesophagus and likely HH, may need EGD if filling defect) Current Visit: Yes (6) Hypoxia Status: Chronic Current Visit: Yes (7) Thrush Status: Chronic Assessment and plan: continue 5-7 days clotrimazole Current Visit: Yes - Time Spent With Patient Total time spent with greater than 50% in coordination of care (as documented) at patient's floor/unit and/or counseling patient: 25 - 35 minutes IM: PN Subjective General: good appetite, pain (Left knee pain, less swollen today and red ( compared to weekend), some bruising by ankle/rodrigues), no fatigue, no confusion, no fever, no chills HEENT: no headache Cardiovascular: no chest pain, no chest pressure, no palpitations Respiratory: cough (chronic likely from chronic bronchitis/emphysema), no sputum , no wheeze Gastrointestinal: bloating, constipation (marked improvement, per patient hard painful BM Friday morning, several smaller then mushy since.), other ( dysphagia w/ rumination), no abdominal pain, no nausea, no vomiting Genitourinary: no dysuria (resolved) Musculoskeletal: pain, swelling (pain and swelling left knee, largely controlled on scheduled oxycodone and tolerating without pruritis) Integumentary: wound (incisional wound, some excoriations and skin breakdown in the popliteal area), no rashes Neurological: no headache IM: PN Objective Exam - I&O/Vital Signs I&O: Intake & Output 01/19/17 01/20/17 01/20/17 21:59 05:59 13:59 Intake Total 800 800 Balance 800 800 Intake: Oral 800 800 Other: Voiding Method Toilet # Voids 3 Vital Signs: Last Vital Signs Temp 36.8 C 01/20/17 06:39 Pulse 81 01/20/17 06:39 Resp 17 01/20/17 06:39 BP 133/45 01/20/17 06:39 Pulse Ox 95 01/20/17 06:39 Oxygen Flow Rate 3 Oxygen Delivery Method Nasal Cannula - Constitutional General appearance: Present: obese. Absent: acute distress - Head Head exam: Present: atraumatic - Eye Eye exam: Present: EOMI, normal appearance, PERRL. Absent: conjunctival injection - ENT ENT exam: Present: mucous membranes moist - Neck Neck exam: Present: full ROM. Absent: lymphadenopathy - Respiratory Respiratory exam: Present: prolonged expiratory phase. Absent: accessory muscle use, rales (bibasilar, mild), rhonchi, wheezes - Cardiovascular Cardiovascular exam: Present: RRR (not currently in Afib). Absent: S3, S4 - GI/Abdominal GI/Abdominal exam: Present: distended (mildly), normal bowel sounds, soft, tenderness (left lower quadrant without rebound/guarding, palpable stool no longer present). Absent: bruit, hypoactive bowel sounds - Rectal Rectal exam: Present: deferred - Extremities Exam Extremities exam: Present: calf tenderness (bilateral, diffuse), joint swelling (wound redressed, scant discharge, expected edema, no erythema/warmth). Absent : Ian's Sign - Neurological Exam Neurological exam: Present: oriented X3. Absent: altered - Psychiatric Psychiatric exam: Absent: anxious, depressed - Skin Skin exam: Absent: rash - Allied Health Notes Allied health notes reviewed: nursing - Lab Labs: Laboratory Last Values WBC 9.0 X 10^3uL (3.9-10.7) 01/19/17 06:40 RBC 2.92 X 10^6uL (4.20-6.10) L 01/19/17 06:40 Hgb 8.1 g/dL (12.0-16.0) L 01/19/17 06:40 Hct 24.9 % (36.0-48.0) L 01/19/17 06:40 MCV 85.2 fL (80.0-100.0) 01/19/17 06:40 MCH 27.9 pg (29.0-35.0) L 01/19/17 06:40 MCHC 32.7 g/dL (32.0-36.0) 01/19/17 06:40 RDW 14.1 % (11.5-14.5) 01/19/17 06:40 Plt Count 494 X 10^3uL (130-440) H 01/19/17 06:40 MPV 6.2 fL (7.4-10.4) L 01/19/17 06:40 Neutrophils % 57.3 % (54.0-75.0) 01/19/17 06:40 Lymphocytes % 25.4 % (20.0-40.0) 01/19/17 06:40 Eosinophils % 4.8 % (0.0-6.0) 01/19/17 06:40 Basophils % 0.8 % (0.0-2.0) 01/19/17 06:40 Neutrophils # 5.2 X 10^3uL (2.6-6.7) 01/19/17 06:40 Lymphocytes # 2.3 X 10^3uL (0.8-3.8) 01/19/17 06:40 Monocytes 11.7 % (2.0-10.0) H 01/19/17 06:40 Monocytes # 1.0 X 10^3uL (0.2-1.0) 01/19/17 06:40 Eosinophils # 0.4 X 10^3uL (0.0-0.4) 01/19/17 06:40 Basophils # 0.1 X 10^3uL (0.0-0.1) 01/19/17 06:40 Retic Count See comments (()) 01/18/17 06:40 PT 18.2 sec (13.0-16.6) H 01/20/17 06:15 Capillary INR 1.2 (0.8-1.2) 01/17/17 07:40 INR 1.4 01/20/17 06:15 Sodium 138 mmol/L (137-145) 01/19/17 06:40 Potassium 4.1 mmol/L (3.5-5.1) 01/19/17 06:40 Chloride 107 mmol/L (98-107) 01/19/17 06:40 Carbon Dioxide 26 mmol/L (22-30) 01/19/17 06:40 BUN 10 mg/dL (7-17) 01/19/17 06:40 Creatinine 0.7 mg/dL (0.5-1.0) 01/19/17 06:40 GFR Calculation > 60 mL/min 01/19/17 06:40 Glucose 100 mg/dL (70-100) 01/19/17 06:40 Calcium 8.8 mg/dL (8.4-10.2) 01/19/17 06:40 Total Bilirubin 0.9 mg/dL (0.2-1.3) 01/17/17 07:40 Direct Bilirubin 0.3 mg/dL (0.0-0.4) 01/17/17 07:40 AST 19 U/L (14-36) 01/17/17 07:40 ALT 36 U/L (9-52) 01/17/17 07:40 Alkaline Phosphatase 94 U/L (38-126) 01/17/17 07:40 Total Protein 6.1 g/dL (6.3-8.2) L D 01/17/17 07:40 Albumin 3.1 g/dL (3.5-5.0) L D 01/17/17 07:40 TSH 0.36 uIU/mL (0.47-4.68) L D 01/17/17 07:40 Free T4 1.37 ng/dL (0.78-2.19) 01/17/17 07:40 Urine Color Yellow 01/16/17 19:45 Urine Appearance Clear 01/16/17 19:45 Urine pH 7.0 (5-7) 01/16/17 19:45 Ur Specific [place] 1.020 (0.001-1.035) 01/16/17 19:45 Urine Protein Negative (NEG - TRACE) 01/16/17 19:45 Urine Ketones Negative (NEGATIVE) 01/16/17 19:45 Urine Blood Negative (NEGATIVE) 01/16/17 19:45 Urine Nitrate Negative (NEGATIVE) 01/16/17 19:45 Urine Bilirubin Negative (NEGATIVE) 01/16/17 19:45 Urine Urobilinogen 0.2mg/dl (normal) (NEG-1mg/dL) 01/16/17 19:45 Ur Leukocyte Esterase Negative (NEGATIVE) 01/16/17 19:45 Urine RBC None seen (0-5/hpf) 01/16/17 19:45 Urine WBC 0-4/hpf (0-4/hpf) 01/16/17 19:45 Ur Squamous Epith Cells 5-10/hpf (<= 15/hpf) 01/16/17 19:45 Urine Bacteria 10-20 organisms/hpf (<10/hpf) A 01/16/17 19:45 Urine Mucus Up to 50%/lpf (Up to 25%) A 01/16/17 19:45 Urine Glucose Normal (NEGATIVE) 01/16/17 19:45
[2017-01-20] MEDS: CIPROFLOXACIN HCL 250 MG TABLET PO SCH ×2 (09:57→22:25)
[2017-01-20] MEDS: ENOXAPARIN SODIUM 40 MG/0.4 ML SYR SUBCUT SCH (11:48)
[2017-01-20] MEDS: WARFARIN SODIUM 2 MG TABLET PO SCH (15:20)
[2017-01-20] MEDS: hydrOXYzine HCL 10 MG TABLET PO PRN (17:54)
[2017-01-20] MEDS: ROSUVASTATIN CALCIUM 20 MG TABLET PO SCH (20:17)
[2017-01-20] MEDS: QUETIAPINE FUMARATE 25 MG TABLET PO SCH (20:17)
[2017-01-20] MEDS: GABAPENTIN 100 MG CAPSULE PO SCH (20:17)
[2017-01-21] MEDS: CLOTRIMAZOLE 10 MG TROCHE MUCOUS MEM SCH ×5 (04:56→20:33)
[2017-01-21 05:35] LABS: BASOPHIL# 0.1 X 10^3uL (0.0-0.1); BASOPHILS 0.7 % (0.0-2.0); EOSINOPHILS 4.7 % (0.0-6.0); EOSINOPHILS# 0.4 X 10^3uL (0.0-0.4); HEMATOCRIT 24.9 % (36.0-48.0); HEMOGLOBIN 8.1 g/dL (12.0-16.0); LYMPHOCYTES# 2.2 X 10^3uL (0.8-3.8); MEAN CELL VOLUME 84.8 fL (80.0-100.0); MEAN CORPUS. HGB CONCENTRATION 32.6 g/dL (32.0-36.0); MEAN CORPUSCULAR HEMOGLOBIN 27.7 pg (29.0-35.0); MEAN PLATELET VOLUME 6.5 fL (7.4-10.4); MONOCYTES 11.7 % (2.0-10.0); NEUTROPHILS 56.9 % (54.0-75.0); NEUTROPHILS# 4.7 X 10^3uL (2.6-6.7); RED BLOOD COUNT 2.93 X 10^6uL (4.20-6.10); RED CELL DISTRIBUTION WIDTH 14.3 % (11.5-14.5); WHITE BLOOD COUNT 8.4 X 10^3uL (3.9-10.7)
[2017-01-21 05:47] LABS: INR 1.5
[2017-01-21] MEDS: PANTOPRAZOLE 40 MG TABLET PO SCH (06:28)
[2017-01-21] MEDS: ACETAMINOPHEN 325 MG TABLET PO PRN ×2 (07:49→20:35)
--- NOTE | 2017-01-21 08:23 | PROGRESS NOTE: IM APSO ---
Assessment and Plan - Date of Encounter Date of Encounter: 01/21/17 (1) Status post total knee replacement, left Status: Acute Assessment and plan: Some increased pain this morning but otherwise pain was well controlled. PT/OT eval and care meeting this afternoon for discharge planning. INR still subtherapeutic so DVT prophylaxis in place. Current Visit: Yes (2) Anemia following surgery Status: Acute Assessment and plan: Has be stable with hemoglobin of 8 since arrival to [facility] [place] Concern for GI losses in addition to surgical losses and work up intiated. Hemeoccult negative , last cscope normal 2012. Has received Venofer x2. With new hypotension today , have low threshold for transfusion if needed- otherwise patient is hemodynamically stable and no Afib. Current Visit: Yes (3) Dysphagia Status: Chronic Assessment and plan: Patient states has been struggling with symptoms for past year (although unknown to me as PCP until this hospitalization). I witnessed her eating breakfast with no difficulties. Does have esophogram ordered for today, await results. Will likely need further GI evaluation as outpatient. Current Visit: Yes (4) Bullous emphysema Status: Chronic Assessment and plan: Stable Current Visit: Yes (5) Atrial fibrillation, controlled Status: Acute Assessment and plan: First time episode with surgery. Currently rate controlled without medication and on coumadin. INR 1.5- will review coumadin dosing Current Visit: Yes (6) Hypotension Status: Acute Assessment and plan: Likely combination of volume down (anemia) and medications. BP was noted to be 70s/40s this morning with vitals. Patient was asymptomatic at the time. HR was not elevated. Recommend reassess later in morning and if ongoing hypotension may need to consider blood transfusion- discussed with patient and she is somewhat hesitant for transfusion. Will increase fluid intake. BP was improved to 110s/50s on recheck, continued asymptomatic. Will continue to monitor through day. Would recommend discharge to wait until tomorrow for some additional monitoring of vitals/fluid status and potential need for transfusion. Current Visit: Yes - Time Spent With Patient Total time spent with greater than 50% in coordination of care (as documented) at patient's floor/unit and/or counseling patient: Greater than 35 minutes Estimated anticipated discharge: 1 day IM: PN Subjective Interval history: Was doing really well but had some increased pain early this morning and is still working through that. Unclear cause of flare in symptoms. States to me has had some trouble with swallowing for the past year- feels like things get stuck at a certain point and then she can't get them down (liquids/solids, doesnt matter). Pain control overall good expect for episode this morning. Admits that the higher dose gabapentin (300mg)- made her very drowsy and balance off but lower dose was ok. tolerating medications here with no concerns. Does feel like she is ready to go home, understands that she may need some additional GI evaluation as outpatient. General: good appetite, pain (Left knee pain, less swollen today and red ( compared to weekend), some bruising by ankle/rodrigues), no fatigue, no confusion, no fever, no chills HEENT: no headache Cardiovascular: no chest pain, no chest pressure, no palpitations Respiratory: cough (chronic likely from chronic bronchitis/emphysema), no sputum , no wheeze Gastrointestinal: bloating, constipation (Bowels not quite at baseline, previous constipation but now some mushiness.), other (dysphagia w/ rumination) , no abdominal pain, no nausea, no vomiting Genitourinary: no dysuria (resolved) Musculoskeletal: pain, swelling (pain and swelling left knee, largely controlled on scheduled oxycodone and tolerating without pruritis) Integumentary: wound (incisional wound, some excoriations and skin breakdown in the popliteal area), no rashes Neurological: no headache IM: PN Objective Exam - I&O/Vital Signs I&O: Intake & Output 01/20/17 01/21/17 01/21/17 21:59 05:59 13:59 Intake Total 850 Output Total 725 Balance 125 Intake: Oral 850 Output: Urine 725 Other: Urine Appearance Clear Urine Color Pale Stool Size Small Stool Characteristics Soft Formed Voiding Method Toilet # Voids 3 # Bowel Movements 1 Vital Signs: Last Vital Signs Temp 36.8 C 01/20/17 06:39 Pulse 81 01/20/17 06:39 Resp 17 01/20/17 09:00 BP 133/45 01/20/17 06:39 Pulse Ox 95 01/20/17 09:00 Oxygen Flow Rate 3 Oxygen Delivery Method Nasal Cannula - Constitutional General appearance: Present: obese. Absent: acute distress - Head Head exam: Present: atraumatic - Eye Eye exam: Present: EOMI, normal appearance, PERRL. Absent: conjunctival injection - ENT ENT exam: Present: mucous membranes moist - Neck Neck exam: Present: full ROM. Absent: lymphadenopathy - Respiratory Respiratory exam: Present: prolonged expiratory phase. Absent: accessory muscle use, rales (bibasilar, mild), rhonchi, wheezes - Cardiovascular Cardiovascular exam: Present: RRR (not currently in Afib). Absent: S3, S4 - GI/Abdominal GI/Abdominal exam: Present: distended (mildly), normal bowel sounds, soft, other (patient was sitting and eating breakfast of eggs benedict with no difficulties with chewing/swallowing noted). Absent: bruit, hypoactive bowel sounds - Rectal Rectal exam: Present: deferred - Extremities Exam Extremities exam: Present: calf tenderness (bilateral, diffuse), joint swelling (swelling improved per patient, no erythema/warmth). Absent: Ian's Sign - Neurological Exam Neurological exam: Present: oriented X3. Absent: altered - Psychiatric Psychiatric exam: Absent: anxious, depressed - Skin Skin exam: Absent: rash - Allied Health Notes Allied health notes reviewed: case management, nursing, OT, PT, social work - Lab Labs: Laboratory Last Values WBC 8.4 X 10^3uL (3.9-10.7) 01/21/17 05:00 RBC 2.93 X 10^6uL (4.20-6.10) L 01/21/17 05:00 Hgb 8.1 g/dL (12.0-16.0) L 01/21/17 05:00 Hct 24.9 % (36.0-48.0) L 01/21/17 05:00 MCV 84.8 fL (80.0-100.0) 01/21/17 05:00 MCH 27.7 pg (29.0-35.0) L 01/21/17 05:00 MCHC 32.6 g/dL (32.0-36.0) 01/21/17 05:00 RDW 14.3 % (11.5-14.5) 01/21/17 05:00 Plt Count 553 X 10^3uL (130-440) H 01/21/17 05:00 MPV 6.5 fL (7.4-10.4) L 01/21/17 05:00 Neutrophils % 56.9 % (54.0-75.0) 01/21/17 05:00 Lymphocytes % 26.0 % (20.0-40.0) 01/21/17 05:00 Eosinophils % 4.7 % (0.0-6.0) 01/21/17 05:00 Basophils % 0.7 % (0.0-2.0) 01/21/17 05:00 Neutrophils # 4.7 X 10^3uL (2.6-6.7) 01/21/17 05:00 Lymphocytes # 2.2 X 10^3uL (0.8-3.8) 01/21/17 05:00 Monocytes 11.7 % (2.0-10.0) H 01/21/17 05:00 Monocytes # 1.0 X 10^3uL (0.2-1.0) 01/21/17 05:00 Eosinophils # 0.4 X 10^3uL (0.0-0.4) 01/21/17 05:00 Basophils # 0.1 X 10^3uL (0.0-0.1) 01/21/17 05:00 Retic Count See comments (()) 01/18/17 06:40 PT 19.7 sec (13.0-16.6) H 01/21/17 05:00 Capillary INR 1.2 (0.8-1.2) 01/17/17 07:40 INR 1.5 01/21/17 05:00 Sodium 138 mmol/L (137-145) 01/19/17 06:40 Potassium 4.1 mmol/L (3.5-5.1) 01/19/17 06:40 Chloride 107 mmol/L (98-107) 01/19/17 06:40 Carbon Dioxide 26 mmol/L (22-30) 01/19/17 06:40 BUN 10 mg/dL (7-17) 01/19/17 06:40 Creatinine 0.7 mg/dL (0.5-1.0) 01/19/17 06:40 GFR Calculation > 60 mL/min 01/19/17 06:40 Glucose 100 mg/dL (70-100) 01/19/17 06:40 Calcium 8.8 mg/dL (8.4-10.2) 01/19/17 06:40 Total Bilirubin 0.9 mg/dL (0.2-1.3) 01/17/17 07:40 Direct Bilirubin 0.3 mg/dL (0.0-0.4) 01/17/17 07:40 AST 19 U/L (14-36) 01/17/17 07:40 ALT 36 U/L (9-52) 01/17/17 07:40 Alkaline Phosphatase 94 U/L (38-126) 01/17/17 07:40 Total Protein 6.1 g/dL (6.3-8.2) L D 01/17/17 07:40 Albumin 3.1 g/dL (3.5-5.0) L D 01/17/17 07:40 TSH 0.36 uIU/mL (0.47-4.68) L D 01/17/17 07:40 Free T4 1.37 ng/dL (0.78-2.19) 01/17/17 07:40 Urine Color Yellow 01/16/17 19:45 Urine Appearance Clear 01/16/17 19:45 Urine pH 7.0 (5-7) 01/16/17 19:45 Ur Specific [place] 1.020 (0.001-1.035) 01/16/17 19:45 Urine Protein Negative (NEG - TRACE) 01/16/17 19:45 Urine Ketones Negative (NEGATIVE) 01/16/17 19:45 Urine Blood Negative (NEGATIVE) 01/16/17 19:45 Urine Nitrate Negative (NEGATIVE) 01/16/17 19:45 Urine Bilirubin Negative (NEGATIVE) 01/16/17 19:45 Urine Urobilinogen 0.2mg/dl (normal) (NEG-1mg/dL) 01/16/17 19:45 Ur Leukocyte Esterase Negative (NEGATIVE) 01/16/17 19:45 Urine RBC None seen (0-5/hpf) 01/16/17 19:45 Urine WBC 0-4/hpf (0-4/hpf) 01/16/17 19:45 Ur Squamous Epith Cells 5-10/hpf (<= 15/hpf) 01/16/17 19:45 Urine Bacteria 10-20 organisms/hpf (<10/hpf) A 01/16/17 19:45 Urine Mucus Up to 50%/lpf (Up to 25%) A 01/16/17 19:45 Urine Glucose Normal (NEGATIVE) 01/16/17 19:45 Quality Questions - VTE Prophylaxis Assessment VTE Present on Admission?: No Patient at risk for venous thromboembolism?: Yes VTE Risk Level: High Risk VTE Medical Contraindication: N/A-VTE Prophylaxis ordered
[2017-01-21] MEDS: ENOXAPARIN SODIUM 40 MG/0.4 ML SYR SUBCUT SCH (09:19)
[2017-01-21] MEDS: FLUTICASONE/SALMETEROL 250/50 14 INH DISK INHALATION SCH ×2 (09:19→20:33)
[2017-01-21] MEDS: METHIMAZOLE 5 MG TABLET PO SCH (09:21)
[2017-01-21] MEDS: TIOTROPIUM BROMIDE 18 MCG CAP.W.DEV INHALATION SCH (09:21)
[2017-01-21] MEDS: CIPROFLOXACIN HCL 250 MG TABLET PO SCH ×2 (09:26→21:03)
[2017-01-21 10:02] LABS: ABO GROUP TYPE A; ANTIBODY SCREEN NEGATIVE; RH TYPE NEGATIVE
[2017-01-21] MEDS ORDERED: O2 HUMIDIFIER 650 ML BOTTLE INHALATION ONE (10:51)
[2017-01-21] MEDS: ONDANSETRON ODT 4 MG TAB.RAPDIS PO PRN ×2 (10:57→16:31)
[2017-01-21] MEDS: traMADol HCL 50 MG TABLET PO PRN ×2 (11:11→16:42)
[2017-01-21] MEDS: WARFARIN SODIUM 2 MG TABLET PO SCH (16:20)
[2017-01-21] MEDS: POLYETHYLENE GLYCOL 3350 17 GM POWD.PACK PO PRN (16:32)
--- NOTE | 2017-01-21 17:03 | DC SUMMARY: IM Note ---
<DAVID ANDREW - Last Filed: 01/22/17 15:42> Discharge Summary: IM/Peds Provider: Date of Admission: 01/16/17 Admitting Provider: TRUDY SOLITARIO Attending Provider: TRUDY SOLITARIO Discharging Provider: DAVID ANDREW Primary Care Provider: Discharge Date: 01/22/17 Consults: 01/16/17 08:39 Nutrition/Dietary Consult [CONS] Routine Reason: Swingbed Admission Protocol - Diagnosis (1) Status post total knee replacement, left Status: Acute (2) Anemia following surgery Status: Acute (3) Bullous emphysema Status: Chronic (4) H/O: stroke Status: Chronic (5) Dysphagia Status: Chronic (6) Hypoxia Status: Chronic (7) Thrush Status: Chronic (8) Neuropathy Status: Chronic - Time Spent with Patient Total time spent providing and/or coordinating discharge services: Discharge Follow up: ANDREA MCKEON [MD] - 01/28/17 10:00 am (patient to set up follow up as orthopedics recommends PT HAS A FOLLOW UP ORTHO APPT WITH DR MCKEON IN [place] ON 01/28/17 @ 10AM ) ASHLEY MONTESINOS MD [MD] - 01/28/17 2:00 pm (In [place]) FRANKI SANCHEZ MD [] - 02/20/17 1:15 pm (New referral to further help with evaluation of dysphagia. PT HAS AN APPT WITH DR ROBERT IN [place] 02/20/17 CHECK IN @ 1:15 PM ) TRUDY SOLITARIO DO [Primary Care Provider] - 02/11/17 9:00 am Print Language: HEBREW Home Medications: Warfarin Sodium [Coumadin*] 6 mg PO ONCE DAILY @1600 #90 tablet oxyCODONE HCL IR [Oxy Ir*] 5 mg PO QID PRN #30 tablet PRN Reason: Pain, Moderate traMADol HCL [Ultram*] 50 mg PO Q6H PRN #30 tablet PRN Reason: Pain, Moderate Orders: INR W/ CAPI DRAW [HEM] Time Frame: 01/24/17, Location: Determined By Patient Home Health Care Location: Determined By Patient Home Health Care Location: Determined By Patient Care Plan Goals: You are scheduled for a Esophogram next Friday01/29/17 at 0900. Do not eat after midnight the night before the test. You may take your morning medications with a small sip of water. A Registered Nurse will be visiting you at home and drawing blood to check your INR level. Both a Physical Therapist and Occupational Therapist will also visit you at home to continue your rehabilitation. Disposition: HOME, SELF-CARE Discharge Summary Data - Medication History Medication History: Home Medications Acetaminophen [Tylenol*] 325 mg PO Q6H PRN 01/16/17 Albuterol Hfa [Proventil Inhaler*] 1 inhaler IH Q4H PRN 01/16/17 Diclofenac Sodium [Diclofenac Sodium ER] 100 mg PO DAILY 01/16/17 Fluticasone/Salmeterol 250/50 [Advair 250/50 Diskus*] 1 puff INHALATION BID Gabapentin [Neurontin*] 100 mg PO TID 01/16/17 Methimazole 5 mg PO DAILY 01/16/17 Omeprazole 20 mg PO DAILY 01/16/17 Ondansetron HCl [Zofran] 4 mg PO Q8H PRN 01/16/17 Quetiapine Fumarate [Seroquel*] 50 mg PO HS 01/16/17 Rosuvastatin Calcium [Crestor*] 40 mg PO HS 01/16/17 Tiotropium Roosevelt [Spiriva*] 36 mcg INHALATION DAILY 01/16/17 Warfarin Sodium [Coumadin*] 1 mg PO ONCE 01/16/17 hydrOXYzine HCL [Hydroxyzine HCl*] 10 mg PO BID 01/16/17 Gabapentin [Neurontin*] 200 mg PO HS capsule 01/21/17 Mag-Al Plus Xs Susp [Maalox Suspension*] 5 ml PO Q2H PRN #0 udc 01/21/17 Magnesium Hydroxide [Milk of Magnesia*] 30 ml PO DAILY PRN #0 udc 01/21/17 oxyCODONE HCL IR [Oxy Ir*] 5 mg PO QID PRN #30 tablet 01/21/17 traMADol HCL [Ultram*] 50 mg PO Q6H PRN #30 tablet 01/21/17 Inpatient Medications 01/16/17 08:39 Acetaminophen [Tylenol] 650 mg PO Q6H PRN Mag-Al Plus Xs Susp [Maalox Liquid] 5 ml PO Q2H PRN Magnesium Hydroxide [Milk of Magnesia] 30 ml PO DAILY PRN Polyethylene Glycol 3350 [miraLAX] 17 gm PO BID PRN 01/16/17 08:45 Albuterol Hfa [Proventil Hfa Inhaler] 2 inh INHALATION PRN PRN Ondansetron Odt [Zofran Odt] 4 mg PO Q6H PRN traMADol HCL [Ultram] 50 mg PO Q6H PRN 01/16/17 09:00 Fluticasone/Salmeterol 250/50 [Advair 250/50 Diskus] 1 inh INHALATION BID 01/16/17 14:24 Glycerin Adult [Glycerin Adult Supp] 2 gm RECTAL DAILY PRN 01/16/17 16:00 Clotrimazole [Mycelex] 10 mg MUCOUS MEM 5 TIMES DAILY oxyCODONE HCL IR [Oxy Ir] 5 mg PO Q8H 01/16/17 21:00 Gabapentin [Neurontin] 200 mg PO HS Quetiapine Fumarate [Seroquel] 50 mg PO HS Rosuvastatin Calcium [Crestor] 40 mg PO HS 01/17/17 06:30 Pantoprazole [Protonix] 40 mg PO BEFORE BREAKFAST 01/17/17 09:00 Methimazole [Tapazole] 5 mg PO DAILY Tiotropium Roosevelt [Spiriva] 18 mcg INHALATION DAILY 01/18/17 16:58 hydrOXYzine HCL [Atarax] 25 - 50 mg PO QID PRN 01/19/17 11:20 Benzocaine/Menthol [Cepacol Sorethroat Lozenges] 1 each PO PRN PRN 01/20/17 11:15 Enoxaparin Sodium [Lovenox] 40 mg SUBCUT DAILY 01/22/17 08:47 Acetaminophen [Tylenol] 650 mg PO ONCE PRN Diphenhydramine [Benadryl] 25 mg PO ONCE PRN Furosemide [Lasix] 20 mg PO .BETWEEN UNITS PRN 01/22/17 09:00 Cyanocobalamin [Vitamin B12] 1,000 mcg SUBCUT DAILY 01/22/17 12:54 Warfarin Sodium [Coumadin] 5 mg PO ONCE DAILY @1600 Procedures and tests throughout hospitalization: Completed Lab Orders 01/16/17 19:45 UA W/ MICRO -CULTURE IF IND [URINE] Routine 01/17/17 07:40 BASIC METABOLIC PANEL [CHEM] AMDRAW CBC AUTO DIF, MDIF/RMOR IF IND [HEM] AMDRAW FREE T4 [CHEM] Routine HEPATIC PANEL [CHEM] AMDRAW INR W/O CAPI DRAW [HEM] Routine THYROID STIMULATING HORMONE [CHEM] Routine 01/18/17 06:40 BMP [BASIC METABOLIC PANEL] [CHEM] AMDRAW CBC AUTO DIF, MDIF/RMOR IF IND [HEM] AMDRAW PROTIME/INR [HEM] AMDRAW RETICULOCYTE [SEND] Routine 01/19/17 06:40 BMP [BASIC METABOLIC PANEL] [CHEM] AMDRAW CBC AUTO DIF, MDIF/RMOR IF IND [HEM] AMDRAW PROTIME/INR [HEM] AMDRAW 01/20/17 06:15 PROTIME/INR [HEM] AMDRAW 01/21/17 05:00 CBC AUTO DIF, MDIF/RMOR IF IND [HEM] Routine FOLATES [CHEM] AMDRAW PROTIME/INR [HEM] AMDRAW VITAMIN B12 [CHEM] AMDRAW 01/21/17 05:36 ABO GROUP [HEM] Routine ANTIBODY SCREEN [HEM] Routine CROSSMATCH IMMEDIATE SPIN [HEM] Urgent PRBC WITH STORAGE [HEM] Urgent RH TYPE [HEM] Routine 01/22/17 05:00 CBC AUTO DIF, MDIF/RMOR IF IND [HEM] AMDRAW INR W/O CAPI DRAW [HEM] Routine 01/22/17 10:00 CROSSMATCH IMMEDIATE SPIN [HEM] Urgent PRBC WITH STORAGE [HEM] Urgent Completed Microbiology Orders 01/16/17 19:45 URINE CULTURE [RM] Routine 01/18/17 09:00 Hemoccult [OCCULT BLOOD (1-3 SAMPLES)] [RM] Pending Orders 01/16/17 08:39 Admit: Swing Bed Routine Activity: Ambulate TID Cleanse minor skin tears w/NS PRN Obtain weight Q7D Resuscitation Status Routine Titrate Oxygen TITRATE TO >90% Vital Signs DAILY Wedge cushion for positioning PRN Garment Alteration Examiner Consult [CM] Routine Nutrition/Dietary Consult [CONS] Routine Acetaminophen [Tylenol] 650 mg PO Q6H PRN Mag-Al Plus Xs Susp [Maalox Liquid] 5 ml PO Q2H PRN Magnesium Hydroxide [Milk of Magnesia] 30 ml PO DAILY PRN Polyethylene Glycol 3350 [miraLAX] 17 gm PO BID PRN 01/16/17 08:41 Cover minor skin tears with DAILYPRN 01/16/17 08:42 Occupation Therapy Eval and Treat [OT] Routine 01/16/17 08:45 Albuterol Hfa [Proventil Hfa Inhaler] 2 inh INHALATION PRN PRN Ondansetron Odt [Zofran Odt] 4 mg PO Q6H PRN traMADol HCL [Ultram] 50 mg PO Q6H PRN 01/16/17 09:00 Fluticasone/Salmeterol 250/50 [Advair 250/50 Diskus] 1 inh INHALATION BID 01/16/17 14:24 Glycerin Adult [Glycerin Adult Supp] 2 gm RECTAL DAILY PRN 01/16/17 15:59 Physical Therapy Plan of Care [PT] Routine 01/16/17 16:00 Clotrimazole [Mycelex] 10 mg MUCOUS MEM 5 TIMES DAILY oxyCODONE HCL IR [Oxy Ir] 5 mg PO Q8H 01/16/17 21:00 Gabapentin [Neurontin] 200 mg PO HS Quetiapine Fumarate [Seroquel] 50 mg PO HS Rosuvastatin Calcium [Crestor] 40 mg PO HS 01/16/17 Lunch Cardiac [DIET] 01/17/17 06:30 Pantoprazole [Protonix] 40 mg PO BEFORE BREAKFAST 01/17/17 09:00 Methimazole [Tapazole] 5 mg PO DAILY Tiotropium Roosevelt [Spiriva] 18 mcg INHALATION DAILY 01/17/17 16:19 Occupational Therapy Plan of Care [OT] Routine 01/18/17 16:58 hydrOXYzine HCL [Atarax] 25 - 50 mg PO QID PRN 01/19/17 11:20 Benzocaine/Menthol [Cepacol Sorethroat Lozenges] 1 each PO PRN PRN 01/20/17 11:15 Enoxaparin Sodium [Lovenox] 40 mg SUBCUT DAILY 01/21/17 05:26 LDH [SEND] Routine 01/22/17 08:47 RN Blood Transfusion Orders STAT HOMOCYSTEINE [SEND] Routine METHYLMALONIC ACID, QUANT [SEND] Routine Acetaminophen [Tylenol] 650 mg PO ONCE PRN Diphenhydramine [Benadryl] 25 mg PO ONCE PRN Furosemide [Lasix] 20 mg PO .BETWEEN UNITS PRN 01/22/17 08:48 Post Transfusion H&H ONCE 01/22/17 09:00 Cyanocobalamin [Vitamin B12] 1,000 mcg SUBCUT DAILY 01/22/17 12:54 Warfarin Sodium [Coumadin] 5 mg PO ONCE DAILY @1600 01/23/17 05:00 PROTIME/INR [HEM] AMDRAW 01/24/17 05:00 PROTIME/INR [HEM] AMDRAW Labs on day of discharge: Labs from last 24 hours 01/22/17 01/22/17 01/22/17 10:00 08:47 05:00 WBC 7.3 RBC 3.00 L Hgb 7.7 L Hct 25.7 L MCV 85.7 MCH 25.8 L MCHC 30.1 L RDW 14.4 Plt Count 530 H MPV 7.1 L Neutrophils % 50.7 L Lymphocytes % 29.0 Eosinophils % 6.1 H Basophils % 1.0 Neutrophils # 3.7 Lymphocytes # 2.1 Monocytes 13.2 H Monocytes # 1.0 Eosinophils # 0.4 Basophils # 0.1 Capillary INR 1.8 H Lactate Dehydrogenase Vitamin B12 Methylmalonic Acid Pending Folic Acid Homocysteine Pending ABO Group Rh Factor Antibody Screen Crossmatch Compatible 01/21/17 01/21/17 05:36 05:00 WBC Cancelled RBC Cancelled Hgb Cancelled Hct Cancelled MCV Cancelled MCH Cancelled MCHC Cancelled RDW Cancelled Plt Count Cancelled MPV Cancelled Neutrophils % Cancelled Lymphocytes % Cancelled Eosinophils % Cancelled Basophils % Cancelled Neutrophils # Cancelled Lymphocytes # Cancelled Monocytes Cancelled Monocytes # Cancelled Eosinophils # Cancelled Basophils # Cancelled Capillary INR Lactate Dehydrogenase Cancelled Vitamin B12 270 Methylmalonic Acid Folic Acid Factory Helper Homocysteine ABO Group Type a Rh Factor Negative Antibody Screen Negative Crossmatch Compatible IM: Discharge Physical Exam - I&O/Vital Signs I&O: Intake & Output 01/22/17 01/22/17 01/22/17 05:59 13:59 21:59 Weight 77 kg Other: Urine Appearance Clear Urine Color Yellow Voiding Method Toilet Vital Signs: Last Vital Signs Temp 37.5 C 01/22/17 12:00 Pulse 85 01/22/17 12:00 Resp 16 01/22/17 12:00 BP 117/53 01/22/17 12:00 Pulse Ox 93 01/22/17 12:00 Oxygen Flow Rate 3 Oxygen Delivery Method Nasal Cannula <TRUDY SOLITARIO - Last Filed: 01/23/17 12:00> Discharge Summary: IM/Peds Provider: Date of Admission: 01/16/17 Admitting Provider: TRUDY SOLITARIO Attending Provider: TRUDY SOLITARIO Discharging Provider: TRUDY SOLITARIO Primary Care Provider: Discharge Date: 01/21/17 Consults: 01/16/17 08:39 Nutrition/Dietary Consult [CONS] Routine Reason: Swingbed Admission Protocol - Diagnosis (1) Status post total knee replacement, left Status: Acute (2) Anemia following surgery Status: Acute (3) Dysphagia Status: Chronic (4) Bullous emphysema Status: Chronic (5) Atrial fibrillation, controlled Status: Acute (6) Hypotension Status: Resolved Hospital Course: Patient was admitted on 01/16/17 for further rehabilitation after left TKA on . Initially she was at an outside facility for rehab and daughter/patient requested transfer to our facility to be closer to family as well as wanting some additional care needs addressed. Her post op course was somewhat uncomplicated besides new onset atrial fibrillation- was started on coumadin. Currently rate controlled without additional medications. Her INR was still subtherapeutic and has been getting lovenox during hospital stay, will discharge with coumadin and have home health help with INR monitoring initially. After arriving to [facility] Kira has continued to improve as expected from a rehabilitation standpoint. Will continue with PT/OT in home care as patient is home bound with no consistent transportation. Kira did demonstrate some difficulties with dysphagia and had at least one episode of emesis on daily basis. She has been able to maintain adequate hydration. Esophogram was recommended and scheduled as outpatient. She does have appt with Dr. Sanchez for help with further evaluation at end of this month. Patient did remain anemic throughout hospital stay. Received Iron infusions. Was overall hemodynamically stable besides some asymptomatic hypotension the morning of 01/21 and again that evening. I did discuss potential for blood transfusion with patient on 01/21with her hemoglobin of 8.1 and now slight hypotension- patient did prefer to monitor and would be agreeable to transfusion if symptoms worsened however. Repeat CBC on 01/22 showed hemoglobin dropped to 7.7 so patient was given 2 uPRBCs with return of hemoglobin to 12.6. BP have stabilized as well. She will need to follow up with Dr. Solitario next week in clinic and I recommend she contact her orthopedic surgeon as she is likely needing follow up visit as well. Patient also has follow up visit with Dr. Montesinos to address her new onset atrial fibrillation as well as chronic health issues (carotid stenosis). There was some additional evaluation regarding neuropathy for patient during hospital stay as well and she was started on b12 injections with level of 270. Will continue injections as outpatient. - Time Spent with Patient Total time spent providing and/or coordinating discharge services: Time with patient DS: Greater than 30 minutes Discharge - Patient/Caregiver Discharge Instructions Activity Level: As reviewed with PT/OT Diet: Regular Overall discharge status: patient is progressing back to baseline 1. Medical reason for no anticoagulation order on D/C?: Treatment not indicated 2. Medical reason for no anticoag overlap on D/C?: Treatment not indicated Discharge Summary Data - Medication History Medication History: Home Medications Acetaminophen [Tylenol] 325 mg PO Q6H PRN 01/16/17 Albuterol Hfa [Proventil Hfa Inhaler] 1 inhaler IH Q4H PRN 01/16/17 Ciprofloxacin HCl [Cipro*] 500 mg PO BID 01/16/17 Diclofenac Sodium [Diclofenac Sodium ER] 100 mg PO DAILY 01/16/17 Fluticasone/Salmeterol 250/50 [Advair 250/50 Diskus*] 1 puff INHALATION BID Gabapentin [Neurontin*] 100 mg PO TID 01/16/17 Methimazole 5 mg PO DAILY 01/16/17 Omeprazole 20 mg PO DAILY 01/16/17 Ondansetron HCl [Zofran] 4 mg PO Q8H PRN 01/16/17 Quetiapine Fumarate [Seroquel*] 50 mg PO HS 01/16/17 Rosuvastatin Calcium [Crestor*] 40 mg PO HS 01/16/17 Tiotropium Roosevelt [Spiriva*] 36 mcg INHALATION DAILY 01/16/17 Warfarin Sodium [Coumadin*] 1 mg PO ONCE 01/16/17 hydrOXYzine HCL [Hydroxyzine HCl*] 10 mg PO BID 01/16/17 oxyCODONE HCL IR [Oxy Ir*] 5 mg PO QID PRN 01/16/17 traMADol HCL [Ultram*] 50 mg PO Q6H PRN 01/16/17 Inpatient Medications 01/16/17 08:39 Acetaminophen [Tylenol] 650 mg PO Q6H PRN Mag-Al Plus Xs Susp [Maalox Liquid] 5 ml PO Q2H PRN Magnesium Hydroxide [Milk of Magnesia] 30 ml PO DAILY PRN Polyethylene Glycol 3350 [miraLAX] 17 gm PO BID PRN 01/16/17 08:45 Albuterol Hfa [Proventil Hfa Inhaler] 2 inh INHALATION PRN PRN Ondansetron Odt [Zofran Odt] 4 mg PO Q6H PRN traMADol HCL [Ultram] 50 mg PO Q6H PRN 01/16/17 09:00 Fluticasone/Salmeterol 250/50 [Advair 250/50 Diskus] 1 inh INHALATION BID 01/16/17 14:24 Glycerin Adult [Glycerin Adult Supp] 2 gm RECTAL DAILY PRN 01/16/17 16:00 Clotrimazole [Mycelex] 10 mg MUCOUS MEM 5 TIMES DAILY oxyCODONE HCL IR [Oxy Ir] 5 mg PO Q8H 01/16/17 21:00 Gabapentin [Neurontin] 200 mg PO HS Quetiapine Fumarate [Seroquel] 50 mg PO HS Rosuvastatin Calcium [Crestor] 40 mg PO HS 01/17/17 06:30 Pantoprazole [Protonix] 40 mg PO BEFORE BREAKFAST 01/17/17 09:00 Methimazole [Tapazole] 5 mg PO DAILY Tiotropium Roosevelt [Spiriva] 18 mcg INHALATION DAILY 01/17/17 10:00 Ciprofloxacin HCl [Cipro] 250 mg PO Q12H 01/18/17 16:58 hydrOXYzine HCL [Atarax] 25 - 50 mg PO QID PRN 01/19/17 11:20 Benzocaine/Menthol [Cepacol Sorethroat Lozenges] 1 each PO PRN PRN 01/20/17 11:13 Warfarin Sodium [Coumadin] 6 mg PO ONCE DAILY @1600 01/20/17 11:15 Enoxaparin Sodium [Lovenox] 40 mg SUBCUT DAILY Procedures and tests throughout hospitalization: Completed Lab Orders 01/16/17 19:45 UA W/ MICRO -CULTURE IF IND [URINE] Routine 01/17/17 07:40 BASIC METABOLIC PANEL [CHEM] AMDRAW CBC AUTO DIF, MDIF/RMOR IF IND [HEM] AMDRAW FREE T4 [CHEM] Routine HEPATIC PANEL [CHEM] AMDRAW INR W/O CAPI DRAW [HEM] Routine THYROID STIMULATING HORMONE [CHEM] Routine 01/18/17 06:40 BMP [BASIC METABOLIC PANEL] [CHEM] AMDRAW CBC AUTO DIF, MDIF/RMOR IF IND [HEM] AMDRAW PROTIME/INR [HEM] AMDRAW RETICULOCYTE [SEND] Routine 01/19/17 06:40 BMP [BASIC METABOLIC PANEL] [CHEM] AMDRAW CBC AUTO DIF, MDIF/RMOR IF IND [HEM] AMDRAW PROTIME/INR [HEM] AMDRAW 01/20/17 06:15 PROTIME/INR [HEM] AMDRAW 01/21/17 05:00 CBC AUTO DIF, MDIF/RMOR IF IND [HEM] Routine PROTIME/INR [HEM] AMDRAW 01/21/17 05:36 ABO GROUP [HEM] Routine ANTIBODY SCREEN [HEM] Routine RH TYPE [HEM] Routine Completed Microbiology Orders 01/16/17 19:45 URINE CULTURE [RM] Routine 01/18/17 09:00 Hemoccult [OCCULT BLOOD (1-3 SAMPLES)] [RM] Pending Orders 01/16/17 08:39 Admit: Swing Bed Routine Activity: Ambulate TID Cleanse minor skin tears w/NS PRN Obtain weight Q7D Resuscitation Status Routine Titrate Oxygen TITRATE TO >90% Vital Signs DAILY Wedge cushion for positioning PRN Garment Alteration Examiner Consult [CM] Routine Nutrition/Dietary Consult [CONS] Routine Acetaminophen [Tylenol] 650 mg PO Q6H PRN Mag-Al Plus Xs Susp [Maalox Liquid] 5 ml PO Q2H PRN Magnesium Hydroxide [Milk of Magnesia] 30 ml PO DAILY PRN Polyethylene Glycol 3350 [miraLAX] 17 gm PO BID PRN 01/16/17 08:41 Cover minor skin tears with DAILYPRN 01/16/17 08:42 Occupation Therapy Eval and Treat [OT] Routine 01/16/17 08:45 Albuterol Hfa [Proventil Hfa Inhaler] 2 inh INHALATION PRN PRN Ondansetron Odt [Zofran Odt] 4 mg PO Q6H PRN traMADol HCL [Ultram] 50 mg PO Q6H PRN 01/16/17 09:00 Fluticasone/Salmeterol 250/50 [Advair 250/50 Diskus] 1 inh INHALATION BID 01/16/17 14:24 Glycerin Adult [Glycerin Adult Supp] 2 gm RECTAL DAILY PRN 01/16/17 15:59 Physical Therapy Plan of Care [PT] Routine 01/16/17 16:00 Clotrimazole [Mycelex] 10 mg MUCOUS MEM 5 TIMES DAILY oxyCODONE HCL IR [Oxy Ir] 5 mg PO Q8H 01/16/17 21:00 Gabapentin [Neurontin] 200 mg PO HS Quetiapine Fumarate [Seroquel] 50 mg PO HS Rosuvastatin Calcium [Crestor] 40 mg PO HS 01/16/17 Lunch Cardiac [DIET] 01/17/17 06:30 Pantoprazole [Protonix] 40 mg PO BEFORE BREAKFAST 01/17/17 09:00 Methimazole [Tapazole] 5 mg PO DAILY Tiotropium Roosevelt [Spiriva] 18 mcg INHALATION DAILY 01/17/17 10:00 Ciprofloxacin HCl [Cipro] 250 mg PO Q12H 01/17/17 16:19 Occupational Therapy Plan of Care [OT] Routine 01/18/17 16:58 hydrOXYzine HCL [Atarax] 25 - 50 mg PO QID PRN 01/19/17 11:20 Benzocaine/Menthol [Cepacol Sorethroat Lozenges] 1 each PO PRN PRN 01/20/17 11:13 Warfarin Sodium [Coumadin] 6 mg PO ONCE DAILY @1600 01/20/17 11:15 Enoxaparin Sodium [Lovenox] 40 mg SUBCUT DAILY 01/21/17 05:00 FOLATES [CHEM] AMDRAW VITAMIN B12 [CHEM] AMDRAW 01/21/17 05:26 LDH [SEND] Routine 01/21/17 16:51 ESOPHOGRAM [id number] [FLUORO] Routine 01/22/17 05:00 PROTIME/INR [HEM] AMDRAW 01/23/17 05:00 PROTIME/INR [HEM] AMDRAW 01/24/17 05:00 PROTIME/INR [HEM] AMDRAW Labs on day of discharge: Labs from last 24 hours 01/21/17 01/21/17 01/21/17 05:36 05:26 05:00 WBC RBC Hgb Hct MCV MCH MCHC RDW Plt Count MPV Neutrophils % Lymphocytes % Eosinophils % Basophils % Neutrophils # Lymphocytes # Monocytes Monocytes # Eosinophils # Basophils # PT INR Lactate Dehydrogenase Pending Vitamin B12 Pending Folic Acid Pending ABO Group Type a Rh Factor Negative Antibody Screen Negative 01/21/17 05:00 WBC 8.4 RBC 2.93 L Hgb 8.1 L Hct 24.9 L MCV 84.8 MCH 27.7 L MCHC 32.6 RDW 14.3 Plt Count 553 H MPV 6.5 L Neutrophils % 56.9 Lymphocytes % 26.0 Eosinophils % 4.7 Basophils % 0.7 Neutrophils # 4.7 Lymphocytes # 2.2 Monocytes 11.7 H Monocytes # 1.0 Eosinophils # 0.4 Basophils # 0.1 PT 19.7 H INR 1.5 Lactate Dehydrogenase Vitamin B12 Folic Acid ABO Group Rh Factor Antibody Screen - Impressions Post transfusion hemoglobin 12.6 IM: Discharge Physical Exam - I&O/Vital Signs I&O: Intake & Output 01/21/17 01/21/17 01/21/17 05:59 13:59 21:59 Output Total 400 Balance -400 Output: Emesis 400 Other: Urine Appearance Clear Urine Color Pale Stool Characteristics Voiding Method Toilet Vital Signs: Last Vital Signs Temp 36.1 C L 01/21/17 08:25 Pulse 97 H 01/21/17 08:25 Resp 16 01/21/17 09:00 BP 112/52 01/21/17 09:15 Pulse Ox 93 01/21/17 09:00 Oxygen Flow Rate 3 Oxygen Delivery Method Nasal Cannula - Constitutional General appearance: Present: obese. Absent: acute distress - Head Head exam: Present: atraumatic - Eye Eye exam: Present: EOMI, normal appearance, PERRL. Absent: conjunctival injection - ENT ENT exam: Present: mucous membranes moist - Neck Neck exam: Present: full ROM. Absent: lymphadenopathy - Respiratory Respiratory exam: Present: prolonged expiratory phase. Absent: accessory muscle use, rales (bibasilar, mild), rhonchi, wheezes - Cardiovascular Cardiovascular exam: Present: RRR (not currently in Afib). Absent: S3, S4 - GI/Abdominal GI/Abdominal exam: Present: distended (mildly), normal bowel sounds, soft. Absent: bruit, hypoactive bowel sounds - Rectal Rectal exam: Present: deferred - Extremities Exam Extremities exam: Present: calf tenderness (bilateral, diffuse), joint swelling (swelling improved per patient, no erythema/warmth, posterior lesions with C/D/ I dressing). Absent: Ian's Sign - Neurological Exam Neurological exam: Present: oriented X3. Absent: altered - Psychiatric Psychiatric exam: Absent: anxious, depressed - Skin Skin exam: Absent: rash - Allied Health Notes Allied health notes reviewed: case management, nursing, OT, PT, social work
[2017-01-21] MEDS: ROSUVASTATIN CALCIUM 20 MG TABLET PO SCH (20:34)
[2017-01-21] MEDS: QUETIAPINE FUMARATE 25 MG TABLET PO SCH (20:34)
[2017-01-21] MEDS: GABAPENTIN 100 MG CAPSULE PO SCH (20:34)
[2017-01-21] MEDS: hydrOXYzine HCL 10 MG TABLET PO PRN (20:54)
[2017-01-22] MEDS: CLOTRIMAZOLE 10 MG TROCHE MUCOUS MEM SCH ×5 (05:48→20:30)
[2017-01-22] MEDS: PANTOPRAZOLE 40 MG TABLET PO SCH (05:48)
[2017-01-22 07:25] LABS: BASOPHIL# 0.1 X 10^3uL (0.0-0.1); EOSINOPHILS 6.1 % (0.0-6.0); EOSINOPHILS# 0.4 X 10^3uL (0.0-0.4); HEMATOCRIT 25.7 % (36.0-48.0); HEMOGLOBIN 7.7 g/dL (12.0-16.0); LYMPHOCYTES# 2.1 X 10^3uL (0.8-3.8); MEAN CELL VOLUME 85.7 fL (80.0-100.0); MEAN CORPUS. HGB CONCENTRATION 30.1 g/dL (32.0-36.0); MEAN CORPUSCULAR HEMOGLOBIN 25.8 pg (29.0-35.0); MEAN PLATELET VOLUME 7.1 fL (7.4-10.4); MONOCYTES 13.2 % (2.0-10.0); NEUTROPHILS 50.7 % (54.0-75.0); NEUTROPHILS# 3.7 X 10^3uL (2.6-6.7); RED CELL DISTRIBUTION WIDTH 14.4 % (11.5-14.5); WHITE BLOOD COUNT 7.3 X 10^3uL (3.9-10.7)
[2017-01-22 07:29] LABS: INR W/O CAPI DRAW 1.8 (0.8-1.2)
--- NOTE | 2017-01-22 08:43 | PROGRESS NOTE: IM APSO ---
Assessment and Plan - Date of Encounter Date of Encounter: 01/22/17 (1) Status post total knee replacement, left Status: Acute Assessment and plan: left knee, pain control improved, PT/OT tolerated, resumed DVT prophylaxis pending therapeutic warfarin. Incision without dihiescence Current Visit: Yes (2) Anemia following surgery Status: Acute Assessment and plan: concerned for bowel losses with dysphagia/constipation (though guaiac negative and Cscope negative 2012), esophagram pending, may need Cscope (though 2012 was reported as normal), hemoccult negative. Venofer received x3. f/u hgb and retic and if needed transfuse (though currently hemodynamically stable and no Afib) With painful neuropathy, check B12 (indices are microcytic but could be mixed prior to surgical blood loss) B12 borderline (checking additional labs and replacing), will also transfuse and reviewed rational/risk/benefits with patient. Current Visit: Yes (3) Bullous emphysema Status: Chronic Assessment and plan: inhalers/oxygen, minimal adventitial and tolerating home O2 Current Visit: Yes (4) H/O: stroke Status: Chronic Assessment and plan: minimal sequalae Current Visit: Yes (5) Dysphagia Status: Chronic Assessment and plan: chronic and note component of rumination and reflux. Ba UGI to evaluate ( likely to show some presbyesophagus and likely HH, may need EGD if filling defect) Current Visit: Yes (6) Hypoxia Status: Chronic Current Visit: Yes (7) Thrush Status: Chronic Assessment and plan: continue 5-7 days clotrimazole Current Visit: Yes (8) Neuropathy Status: Chronic Assessment and plan: B12 borderline, check MMA/Homocsyteine and start replacement Current Visit: Yes - Time Spent With Patient Total time spent with greater than 50% in coordination of care (as documented) at patient's floor/unit and/or counseling patient: Greater than 35 minutes Estimated anticipated discharge: 1 day IM: PN Subjective General: good appetite, pain (Left knee pain, less swollen today and red ( compared to weekend), some bruising by ankle/rodrigues, notes excoriation behind knee with bleeding (bandaged)), no fatigue, no confusion, no fever, no chills HEENT: no headache Cardiovascular: other (last nocte noted HR up and a little dizzy with standing, BP stable now but dipped to systolic 90's), no chest pain, no chest pressure, no palpitations Respiratory: cough (chronic likely from chronic bronchitis/emphysema), no sputum , no wheeze Gastrointestinal: constipation (Bowels not quite at baseline, previous constipation but now some mushiness. No melena (notes mustard color)), other ( dysphagia w/ rumination, esophagram taken ?interpretation pending), no abdominal pain, no bloating, no nausea, no vomiting Genitourinary: no dysuria (resolved) Musculoskeletal: pain, swelling (pain and swelling left knee, largely controlled on scheduled oxycodone and tolerating without pruritis) Integumentary: wound (incisional wound, some excoriations and skin breakdown in the popliteal area), no rashes Neurological: other, no headache IM: PN Objective Exam - I&O/Vital Signs I&O: Intake & Output 01/21/17 01/22/17 01/22/17 21:59 05:59 13:59 Intake Total 2200 Output Total 750 Balance 1450 Weight 77 kg Intake: Oral 2200 Output: Urine 750 Other: Urine Appearance Clear Urine Color Yellow Stool Size Moderate Stool Characteristics Soft Formed Voiding Method Toilet # Voids 5 # Bowel Movements 1 Vital Signs: Last Vital Signs Temp 36.3 C L 01/22/17 06:00 Pulse 76 01/22/17 06:00 Resp 16 01/22/17 06:00 BP 120/47 01/22/17 06:00 Pulse Ox 93 01/22/17 06:00 Oxygen Flow Rate 3 Oxygen Delivery Method Nasal Cannula - Constitutional General appearance: Present: obese. Absent: acute distress - Head Head exam: Present: atraumatic - Eye Eye exam: Present: EOMI, normal appearance, PERRL. Absent: conjunctival injection - ENT ENT exam: Present: mucous membranes moist - Neck Neck exam: Present: full ROM. Absent: lymphadenopathy - Respiratory Respiratory exam: Present: prolonged expiratory phase. Absent: accessory muscle use, rales (bibasilar, mild), rhonchi, wheezes - Cardiovascular Cardiovascular exam: Present: RRR (not currently in Afib). Absent: S3, S4 - GI/Abdominal GI/Abdominal exam: Present: normal bowel sounds, soft. Absent: bruit, distended (mildly), hypoactive bowel sounds - Rectal Rectal exam: Present: deferred - Extremities Exam Extremities exam: Present: calf tenderness (bilateral, diffuse), joint swelling (swelling improved per patient, no erythema/warmth). Absent: Ian's Sign - Neurological Exam Neurological exam: Present: oriented X3. Absent: altered - Psychiatric Psychiatric exam: Absent: anxious, depressed - Skin Skin exam: Absent: rash - Allied Health Notes Allied health notes reviewed: case management, nursing, OT, PT, social work - Lab Labs: Laboratory Last Values WBC 7.3 X 10^3uL (3.9-10.7) 01/22/17 05:00 RBC 3.00 X 10^6uL (4.20-6.10) L 01/22/17 05:00 Hgb 7.7 g/dL (12.0-16.0) L 01/22/17 05:00 Hct 25.7 % (36.0-48.0) L 01/22/17 05:00 MCV 85.7 fL (80.0-100.0) 01/22/17 05:00 MCH 25.8 pg (29.0-35.0) L 01/22/17 05:00 MCHC 30.1 g/dL (32.0-36.0) L 01/22/17 05:00 RDW 14.4 % (11.5-14.5) 01/22/17 05:00 Plt Count 530 X 10^3uL (130-440) H 01/22/17 05:00 MPV 7.1 fL (7.4-10.4) L 01/22/17 05:00 Neutrophils % 50.7 % (54.0-75.0) L 01/22/17 05:00 Lymphocytes % 29.0 % (20.0-40.0) 01/22/17 05:00 Eosinophils % 6.1 % (0.0-6.0) H 01/22/17 05:00 Basophils % 1.0 % (0.0-2.0) 01/22/17 05:00 Neutrophils # 3.7 X 10^3uL (2.6-6.7) 01/22/17 05:00 Lymphocytes # 2.1 X 10^3uL (0.8-3.8) 01/22/17 05:00 Monocytes 13.2 % (2.0-10.0) H 01/22/17 05:00 Monocytes # 1.0 X 10^3uL (0.2-1.0) 01/22/17 05:00 Eosinophils # 0.4 X 10^3uL (0.0-0.4) 01/22/17 05:00 Basophils # 0.1 X 10^3uL (0.0-0.1) 01/22/17 05:00 Retic Count See comments (()) 01/18/17 06:40 PT 19.7 sec (13.0-16.6) H 01/21/17 05:00 Capillary INR 1.8 (0.8-1.2) H 01/22/17 05:00 INR 1.5 01/21/17 05:00 Sodium 138 mmol/L (137-145) 01/19/17 06:40 Potassium 4.1 mmol/L (3.5-5.1) 01/19/17 06:40 Chloride 107 mmol/L (98-107) 01/19/17 06:40 Carbon Dioxide 26 mmol/L (22-30) 01/19/17 06:40 BUN 10 mg/dL (7-17) 01/19/17 06:40 Creatinine 0.7 mg/dL (0.5-1.0) 01/19/17 06:40 GFR Calculation > 60 mL/min 01/19/17 06:40 Glucose 100 mg/dL (70-100) 01/19/17 06:40 Calcium 8.8 mg/dL (8.4-10.2) 01/19/17 06:40 Total Bilirubin 0.9 mg/dL (0.2-1.3) 01/17/17 07:40 Direct Bilirubin 0.3 mg/dL (0.0-0.4) 01/17/17 07:40 AST 19 U/L (14-36) 01/17/17 07:40 ALT 36 U/L (9-52) 01/17/17 07:40 Alkaline Phosphatase 94 U/L (38-126) 01/17/17 07:40 Lactate Dehydrogenase Cancelled 01/21/17 05:00 Total Protein 6.1 g/dL (6.3-8.2) L D 01/17/17 07:40 Albumin 3.1 g/dL (3.5-5.0) L D 01/17/17 07:40 Vitamin B12 270 pg/mL (230-1050) 01/21/17 05:00 Folic Acid Return To Factory Clerk 01/21/17 05:00 TSH 0.36 uIU/mL (0.47-4.68) L D 01/17/17 07:40 Free T4 1.37 ng/dL (0.78-2.19) 01/17/17 07:40 Urine Color Yellow 01/16/17 19:45 Urine Appearance Clear 01/16/17 19:45 Urine pH 7.0 (5-7) 01/16/17 19:45 Ur Specific [place] 1.020 (0.001-1.035) 01/16/17 19:45 Urine Protein Negative (NEG - TRACE) 01/16/17 19:45 Urine Ketones Negative (NEGATIVE) 01/16/17 19:45 Urine Blood Negative (NEGATIVE) 01/16/17 19:45 Urine Nitrate Negative (NEGATIVE) 01/16/17 19:45 Urine Bilirubin Negative (NEGATIVE) 01/16/17 19:45 Urine Urobilinogen 0.2mg/dl (normal) (NEG-1mg/dL) 01/16/17 19:45 Ur Leukocyte Esterase Negative (NEGATIVE) 01/16/17 19:45 Urine RBC None seen (0-5/hpf) 01/16/17 19:45 Urine WBC 0-4/hpf (0-4/hpf) 01/16/17 19:45 Ur Squamous Epith Cells 5-10/hpf (<= 15/hpf) 01/16/17 19:45 Urine Bacteria 10-20 organisms/hpf (<10/hpf) A 01/16/17 19:45 Urine Mucus Up to 50%/lpf (Up to 25%) A 01/16/17 19:45 Urine Glucose Normal (NEGATIVE) 01/16/17 19:45 ABO Group Type a 01/21/17 05:36 Rh Factor Negative 01/21/17 05:36 Antibody Screen Negative 01/21/17 05:36
[2017-01-22] MEDS ORDERED: ACETAMINOPHEN 325 MG TABLET PO PRN (08:47)
[2017-01-22] MEDS ORDERED: FUROSEMIDE 20 MG TABLET PO PRN (08:47)
[2017-01-22] MEDS ORDERED: DIPHENHYDRAMINE 25 MG CAPSULE PO PRN (08:47)
[2017-01-22] MEDS: CIPROFLOXACIN HCL 250 MG TABLET PO SCH (09:34)
[2017-01-22] MEDS: METHIMAZOLE 5 MG TABLET PO SCH (09:35)
[2017-01-22] MEDS: FLUTICASONE/SALMETEROL 250/50 14 INH DISK INHALATION SCH ×2 (09:36→20:30)
[2017-01-22] MEDS: TIOTROPIUM BROMIDE 18 MCG CAP.W.DEV INHALATION SCH (09:38)
[2017-01-22] MEDS: CYANOCOBALAMIN 1,000 MCG/ML VIAL SUBCUT SCH (09:49)
[2017-01-22] MEDS: ENOXAPARIN SODIUM 40 MG/0.4 ML SYR SUBCUT SCH (10:11)
[2017-01-22] MEDS ORDERED: NORMAL SALINE 250 ML IV ONE (10:41)
[2017-01-22 11:04] LABS: CROSSMATCH IMMEDIATE SPIN COMPATIBLE
[2017-01-22 11:04] LABS: CROSSMATCH IMMEDIATE SPIN COMPATIBLE
[2017-01-22] MEDS ORDERED: WARFARIN SODIUM 2 MG TABLET PO SCH (12:54)
[2017-01-22] MEDS: traMADol HCL 50 MG TABLET PO PRN (13:19)
[2017-01-22] MEDS: QUETIAPINE FUMARATE 25 MG TABLET PO SCH (20:30)
[2017-01-22] MEDS: ROSUVASTATIN CALCIUM 20 MG TABLET PO SCH (20:30)
[2017-01-22] MEDS: hydrOXYzine HCL 10 MG TABLET PO PRN (20:30)
[2017-01-22] MEDS: GABAPENTIN 100 MG CAPSULE PO SCH (20:30)
[2017-01-22 20:54] VITALS: RESP 18
[2017-01-23] MEDS ORDERED: FLUTICASONE/SALMETEROL 250/50 14 INH DISK INHALATION SCH
[2017-01-23] MEDS ORDERED: TIOTROPIUM BROMIDE 18 MCG CAP.W.DEV INHALATION SCH
[2017-01-23 06:03] LABS: HEMATOCRIT 36.2 % (36.0-48.0)
[2017-01-23] MEDS: PANTOPRAZOLE 40 MG TABLET PO SCH (06:06)
[2017-01-23] MEDS: CLOTRIMAZOLE 10 MG TROCHE MUCOUS MEM SCH ×3 (06:06→12:49)
[2017-01-23 06:11] LABS: INR 1.7
[2017-01-23] MEDS: CYANOCOBALAMIN 1,000 MCG/ML VIAL SUBCUT SCH (09:26)
[2017-01-23] MEDS: METHIMAZOLE 5 MG TABLET PO SCH (09:26)
[2017-01-23] MEDS: ENOXAPARIN SODIUM 40 MG/0.4 ML SYR SUBCUT SCH (09:34)
[2017-01-23] MEDS: TIOTROPIUM BROMIDE 18 MCG CAP.W.DEV INHALATION SCH (09:34)
[2017-01-23] MEDS: FLUTICASONE/SALMETEROL 250/50 14 INH DISK INHALATION SCH (09:34)
[2017-01-23 11:35] VITALS: BP 113/50; PULSE 90; TEMP 98.2; O2SAT 98
[2017-01-23] MEDS: traMADol HCL 50 MG TABLET PO PRN (12:50)
[2017-01-23] MEDS: ACETAMINOPHEN 325 MG TABLET PO PRN (14:52)
[2017-01-25 09:00] LABS: HOMOCYSTEINE 13.6 umol/L (4.7-12.6)
== END 2017-01-23 08:47 | disposition home health service (06) | DRG 560 ==
LOC: IN 13:57
PROVIDERS: ADMIT Family Medicine; ATTEND Family Medicine
DX: Z47.1 Aftercare following joint replacement surgery (principal); Z96.652 Presence of left artificial knee joint; M79.7 Fibromyalgia; D50.0 Iron deficiency anemia secondary to blood loss (chronic); Z86.73 Personal history of transient ischemic attack (TIA), and cerebral infarction without residual deficits; R13.10 Dysphagia, unspecified; J44.9 Chronic obstructive pulmonary disease, unspecified; K21.9 Gastro-esophageal reflux disease without esophagitis; Z85.41 Personal history of malignant neoplasm of cervix uteri; Z96.642 Presence of left artificial hip joint; Z87.440 Personal history of urinary (tract) infections; R09.02 Hypoxemia; Z99.81 Dependence on supplemental oxygen; J43.9 Emphysema, unspecified; B37.0 Candidal stomatitis; M06.9 Rheumatoid arthritis, unspecified; E78.5 Hyperlipidemia, unspecified; K58.1 Irritable bowel syndrome with constipation; F32.9 Major depressive disorder, single episode, unspecified; Z79.899 Other long term (current) drug therapy
CPT/HCPCS: 36415; 80048; 80076; 81001; 82270; 82607; 82747; 83090; 83615; 83921; 84439; 84443; 85014; 85018; 85025; 85045; 85610; 86850; 86900; 86901; 86920; 87086; E0555; J1650; J1756; J3420; J7050; P9040-BL; Q0163

== ENCOUNTER 2017-01-30 13:01 | Observation (INO) | payer MEDICARE ==
--- NOTE | 2017-01-30 13:38 | RADIOLOGY REPORT ---
HISTORY: Unknown trauma. Pain began 2016 difficulty with ulnar flexion COMPARISON: None. FINDINGS: 4 views the right wrist were obtained. The lateral film demonstrates cortical irregularity of the abby annie cortex of the proximal carpal row predominantly the lunate. I suspect this is degenerative in smitha gin but could be seen with a cortical avulsion injury. There are marked degenerative changes of the first carpal metacarpal joint. There is complete loss of joint space, sclerosis, remodeling of the articular surfaces and marginal osteophytes. There is mild radial subluxation of the first metacarpal. There are moderate degenerative changes of the intercarp al joint between the scaphoid trapezium and trapezoid. The scaphoid appears intact. IMPRESSION: 1. Generalized osteopenia. No acute fracture. 2. Marked degenerative changes involving the first carpal metacarpal joint as well as the intercarpal joint between the scaphoid and trapezium and trapezoid. 3. Linear calcifications posterior to the lunate which are probably degenerative in origin. Final Electronic Signature: This report was electronically signed by Wilber Zepeda MD on 01/30/2017 1:3 5 PM. [facility] /
[2017-01-30] MEDS ORDERED: HOME MEDICATION LIST NEEDED 1 EA EACH MC ONE (14:25)
--- NOTE | 2017-01-30 15:08 | ER PHYSICIAN DOCUMENTATION ---
Physician Documentation [facility] Name:Kira Rivera Age:81 yrs Sex:Female :1935 Arrival Date:01/30/2017 Time:13:01 Bed3 Private MD:Mariela Will ED, Scott Disposition: 01/30/17 14:43 Admit ordered for Sam Reina. Preliminary diagnosis is Hemarthrosis. - Bed requested for Medical/Surgical. - Condition is Good. - Problem is new. - Symptoms are unchanged. 23 HR OBS Yes HPI: 01/30 14:31 This 81 yrs old Female presents to ER via Private Vehicle with complaints of sc Wrist Pain - R. 14:31 The patient or guardian reports pain, swelling. The complaints affect the right wrist sc diffusely. Context: The problem was sustained at home, resulted from using new walker yesterday, no specific fall, elevated inr of 5.0. Onset: The symptom(s)/episode began/occurred yesterday, and became worse today. The patient has not experienced similar symptoms in the past. - Tetanus: unable to assess. - Ebola Screening: : Patient denies exposure to infectious person. Patient denies travel to an Ebola-affected area in the 21 days before illness onset. . - Social history: Smoking status: Patient states former smoker of tobacco. ROS: 14:41 Constitutional: Negative for fever, chills, and weight loss. sc Eyes: Negative for injury, pain, redness, and discharge. Neck: Negative for injury, pain, and swelling. Cardiovascular: Negative for chest pain, palpitations, and edema. Respiratory: Negative for shortness of breath, cough, wheezing, and pleuritic chest pain. Abdomen/GI: Negative for abdominal pain, nausea, vomiting, diarrhea, and constipation. Back: Negative for injury and pain. 14:41 Neuro: Negative for headache, weakness, numbness, tingling, and seizure. sc 14:41 MS/extremity: Positive for erythema, pain, swelling. Exam: 14:41 Hand exam: Exam is positive for erythema, snuff box/scaphoid tenderness, swelling, sc tenderness, ROM: limited active range of motion due to pain, limited passive range of motion due to pain, Circulation is intact in all extremities. sensation intact. Constitutional: This is a well developed, well nourished patient who is awake, alert, and in no acute distress. Head/Face: Normocephalic, atraumatic. Eyes: Pupils equal round and reactive to light, extra-ocular motions intact. Lids and lashes normal. Conjunctiva and sclera are non-icteric and not injected. Cornea within normal limits. Periorbital areas with no swelling, redness, or edema. Neck: Trachea midline, no thyromegaly or masses palpated, and no cervical lymphadenopathy. Supple, full range of motion without nuchal rigidity, or vertebral point tenderness. No meningismus. Chest/axilla: Normal chest wall appearance and motion. Nontender with no deformity. No lesions are appreciated. Cardiovascular: Regular rate and rhythm with a normal S1 and S2. No gallops, murmurs, or rubs. Normal PMI, no JVD. No pulse deficits. Respiratory: Lungs have equal breath sounds bilaterally, clear to auscultation and percussion. No rales, rhonchi or wheezes noted. No increased work of breathing, no retractions or nasal flaring. Back: No spinal tenderness. No costovertebral tenderness. Full range of motion. Skin: Warm, dry with normal turgor. Normal color with no rashes, no lesions, and no evidence of cellulitis. 14:41 Neuro: Awake and alert, GCS 15, oriented to person, place, time, and situation. Cranial nerves II-XII grossly intact. Motor strength 5/5 in all extremities. Sensory grossly intact. Cerebellar exam normal. Normal gait. Vital Signs: 13:22 BP 116 / 81; Pulse 95; Pulse Ox 92% on R/A; Pain 10/10; st MDM: 13:08 Patient medically screened. or 14:42 Differential diagnosis: closed fracture, contusion, hemarthrosis. Data reviewed: vital sc signs, nurses notes, old medical records, lab test result(s), radiologic studies, and as a result, I will admit patient. Counseling: I had a detailed discussion with the patient and/or guardian regarding: the historical points, exam findings, and any diagnostic results supporting the discharge/admit diagnosis, radiology results, the need for further work-up and treatment in the hospital. 01/30 13:38 Order name: WRIST; [place] [id number] EDMS Dispensed Medications: 14:21 Drug: oxyCODONE 5 mg; Route: PO; st 15:06 Follow up: Response: Pain is unchanged, physician notified st Signatures: Janae Martinez RN RN Howie Moon MD MD or
--- NOTE | 2017-01-30 15:08 | ER NURSING DOCUMENTATION ---
Nurse's Notes [facility] Name:Kira Rivera Age:81 yrs Sex:Female :1935 Arrival Date:01/30/2017 Time:13:01 Bed3 Private MD:Mariela Will Diagnosis:Hemarthrosis Presentation: 01/30 13:12 Presenting complaint: Patient states: pt complains of right wrist pain. Daughter st states: daughter states that pt has right wrist pain since yesterday morning today pt has taken the max of her pain med and still in significant pain. Home health checked her INR and found to be 5. daughter thinks that the wrist may have been injured from using the walker (pt recently had a knee replacement). Transition of care: Home. 13:12 Acuity: YOMAIRA 3 st 13:12 Method Of Arrival: Private Vehicle st Triage Assessment: 13:21 General: Appears uncomfortable, Behavior is cooperative, holding her wrist and is st unable to stay still. . Pain: Complains of pain in right wrist Pain currently is 10 out of 10 on a pain scale. Pain began 1 day ago. Musculoskeletal: Circulation, motion, and sensation intact Swelling present in right wrist redness around the right wrist Reports pain in right wrist. - Tetanus: unable to assess. - Ebola Screening: : Patient denies exposure to infectious person. Patient denies travel to an Ebola-affected area in the 21 days before illness onset. . - Social history: Smoking status: Patient states former smoker of tobacco. Screenin:23 Infectious Disease Risk None. Abuse screen: Denies threats or abuse. Denies injuries st from another. Nutritional screening: No deficits noted. Vital Signs: 13:22 BP 116 / 81; Pulse 95; Pulse Ox 92% on R/A; Pain 10/10; st ED Course: 13:02 Patient arrived in ED. ama 13:02 Mariela Will DO is Private Physician. ama 13:08 Howie Fajardo MD is Attending Physician. sc 13:11 Janae Martinez, RN is Primary Nurse. st 13:[address] 13:28 Port Xray Completed. tt 14:01 Velcro wrist splint applied to right wrist. st 14:02 Inserted peripheral IV: 20 gauge in right forearm. st 14:42 Sam Reina MD is Admitting Physician. sc Administered Medications: 14:21 Drug: oxyCODONE 5 mg; Route: PO; st 15:06 Follow up: Response: Pain is unchanged, physician notified Outcome: 14:43 Decision to Admit by Provider. nm 15:03 Admitted to Med/surg accompanied by nurse, via wheelchair. st 15:03 Condition: stable 15:03 Report given to Rupal Holloway RN 15:03 Instructed on need to admit 15:07 Patient [address] the ED. st Signatures: Janae Martinez RN RN st Howie Fajardo MD MD sc Terriere, Tracy tt Parmjit Mary, Reg Reg ama
[2017-01-30] MEDS ORDERED: hydrOXYzine HCL 10 MG TABLET PO PRN (17:02)
[2017-01-30] MEDS ORDERED: ALBUTEROL HFA 1 INH INHALER INHALATION PRN (17:02)
[2017-01-30] MEDS ORDERED: PHYTONADIONE 1 MG/0.5 ML SYR SUBCUT ONE (17:02)
[2017-01-30] MEDS ORDERED: KETOROLAC TROMETHAMINE 30 MG/ML VIAL IV ONE (17:02)
[2017-01-30] MEDS ORDERED: KETOROLAC TROMETHAMINE 30 MG/ML VIAL ONE (17:05)
[2017-01-30] MEDS ORDERED: HYDROmorphone HCL 1 MG/ML SYR IV PRN (17:06)
[2017-01-30] MEDS ORDERED: ONDANSETRON ODT 4 MG TAB.RAPDIS PO PRN (17:47)
--- NOTE | 2017-01-30 17:54 | RADIOLOGY REPORT ---
HISTORY: Left knee pain. COMPARISON: None available. FINDINGS: 3 views of the left knee obtained. Patient is status post left knee replacement. Femoral and tibial components are within their expected positions. No acute fracture. No dislocation. Probable small solo nt effusion. Grossly normal mineralization and alignment. Mild soft tissue swelling. No focal lytic or sclerotic lesions. IMPRESSION: Left total knee replacement. No acute osseous abnormality. Small joint effusion and mild soft tissue swelling. Final Electronic Signature: This report was electronically signed by Josemanuel Camarillo MD, FACR on 01/30/2017 5:51 PM. rosi /
[2017-01-30] MEDS ORDERED: PHYTONADIONE 10 MG/ML AMP ONE (18:09)
[2017-01-30] MEDS ORDERED: ONDANSETRON HCL 4 MG/2 ML VIAL ONE (18:11)
[2017-01-30] MEDS ORDERED: ONDANSETRON HCL 4 MG/2 ML VIAL IV PRN (18:16)
[2017-01-30] MEDS: DOCUSATE SODIUM 100 MG CAPSULE PO SCH (18:18)
[2017-01-30] MEDS: CELECOXIB 100 MG CAPSULE PO SCH (18:19)
[2017-01-30] MEDS ORDERED: PHYTONADIONE 1 MG/0.5 ML SYR ONE (18:21)
[2017-01-30 18:26] LABS: MONOCYTES# 1.6 X 10^3uL (0.2-1.0); WHITE BLOOD COUNT 11.3 X 10^3uL (3.9-10.7)
[2017-01-30 18:33] LABS: A/G RATIO 1.1; ALBUMIN 3.9 g/dL (3.5-5.0); ALKALINE PHOSPHATASE 86 U/L (38-126); ALT 27 U/L (9-52); AST 27 U/L (14-36); BILIRUBIN, TOTAL 0.9 mg/dL (0.2-1.3); BLOOD UREA NITROGEN 27 mg/dL (7-17); C-REACTIVE PROTEIN 61.2 mg/L (<10.0); CALCIUM 8.9 mg/dL (8.4-10.2); CHLORIDE 98 mmol/L (98-107); CREATININE 0.8 mg/dL (0.5-1.0); EST GLOMERULAR FILTRATION RATE > 60 mL/min; GLUCOSE 125 mg/dL (70-100); POTASSIUM 3.5 mmol/L (3.5-5.1); SODIUM 136 mmol/L (137-145); TOTAL PROTEIN 7.6 g/dL (6.3-8.2); URIC ACID 5.1 mg/dL (2.5-6.2)
[2017-01-30 18:57] LABS: BASOPHIL# 0.3 X 10^3uL (0.0-0.1); BASOPHILS 2.5 % (0.0-2.0); EOSINOPHILS 0.3 % (0.0-6.0); HEMATOCRIT 37.3 % (36.0-48.0); HEMOGLOBIN 12.3 g/dL (12.0-16.0); LYMPHOCYTES 13.3 % (20.0-40.0); LYMPHOCYTES# 1.5 X 10^3uL (0.8-3.8); MEAN CELL VOLUME 83.9 fL (80.0-100.0); MEAN CORPUS. HGB CONCENTRATION 32.9 g/dL (32.0-36.0); MEAN CORPUSCULAR HEMOGLOBIN 27.6 pg (29.0-35.0); MEAN PLATELET VOLUME 7.8 fL (7.4-10.4); NEUTROPHILS 69.9 % (54.0-75.0); NEUTROPHILS# 7.9 X 10^3uL (2.6-6.7); PLATELET COUNT 439 X 10^3uL (130-440); RED BLOOD COUNT 4.45 X 10^6uL (4.20-6.10); RED CELL DISTRIBUTION WIDTH 13.8 % (11.5-14.5)
[2017-01-30 19:40] LABS: ERYTHROCYTE SEDIMENTATION RATE 69 MM/HR (0-20)
[2017-01-30] MEDS: ATORVASTATIN CALCIUIM 40 MG TABLET PO SCH (20:39)
[2017-01-30] MEDS: FLUTICASONE/SALMETEROL 250/50 14 INH DISK INHALATION SCH (20:41)
[2017-01-30] MEDS: POLYETHYLENE GLYCOL 3350 17 GM POWD.PACK PO SCH (20:41)
[2017-01-30] MEDS: PREGABALIN 50 MG CAPSULE PO SCH (20:41)
--- NOTE | 2017-01-31 05:48 | HISTORY & PHYSICAL ---
DATE OF ADMISSION: 01/30/17 REASON FOR ADMISSION: Acute pain, right wrist. ADMITTING PHYSICIAN: Dr. Fajardo from the emergency room. PRIMARY CARE PHYSICIAN: Dr. Will. HISTORY OF PRESENT ILLNESS: Briefly, the patient is a 81-year-old lady with past medical history significant for cerebral aneurysm, bullous emphysema and prior strokes, coronary calcification and mixed COPD. She also has fibromyalgia and rheumatoid arthritis, mixed dyslipidemia and hypoxemia, as well as a history of uterine cancer and prior breast masses that were biopsied and innocent. Because of her rheumatoid arthritis which effected largely her ankles, knees and wrist, she underwent a right total knee replacement years ago and most recently a left knee replacement by Dr. Anuj Alfonso at [facility]. She was transitioned from surgery at [facility] to the [facility] and was hospitalized at the [place] from the through the 10 of January and from the [facility] from the through the 16 of January when she was transferred to swing bed status at [facility]. During that time an evaluation was ordered for dysphagia which is still pending and the patient was continued on warfarin as she had a history of atrial fibrillation while hospitalized at [facility]. She did not require medications for rate control. Her pain control improved gradually during her hospitalization and she was subsequently discharged home though a day after discharge she developed vomiting and a probable gastroenteritis. She was seen earlier this week on the by Dr. Will who switched her tramadol to oxycodone and added Zofran and the patient had a good day with therapy yesterday. She slept well overnight but awakened this morning with an acutely painful red swollen right wrist with no trauma. She was brought to the emergency room. She was noted to not be febrile but had a history of some chills. An INR was checked and was 5. The rest of the labs have not been checked, and she was admitted for possible hemarthrosis. She describes her pain as 20/10 and had taken 4 Percocet today without mitigation. The remainder of review of systems shows no cough, cold, congestion, no headache, chest pain, palpitations or shortness of breath beyond her baseline dyspnea with COPD. She has had no further emesis. She has not had a bowel movement in 3 days. She does deny abdominal pain. On review of systems she initially stated no other joints were effected but then some warmth and tenderness over her most recent prosthetic knee on the left starting today concomitant with the right wrist swelling and pain. X-rays of the right wrist show degenerative changes and no fractures and the patient is receiving a dose of Toradol for pain control. PAST MEDICAL HISTORY 1. Again notable for cerebral aneurysms times 2 and prior stroke in the 1970s but without sequelae. 2. She has COPD that is O2 dependent and on Advair and Spiriva as well as ProAir and oxygen at 3 liters. 3. She has coronary artery calcifications but no angina symptoms and no prior infarction. 4. Dysphagia that is partly related to GERD. 5. Some rumination related to possible psychiatric disease with depression as well as globus sensation. 6. Fibromyalgia. 7. Status post left hip arthroplasty. 8. Right knee arthroplasty. 9. Left knee arthroplasty. 10. History of uterine cancer. 11. Bilateral breast masses. 12. Mixed dyslipidemia. 13. History of rheumatoid arthritis not currently on disease modifying anti- rheumatic drugs nor steroids. 14. Recurrent thrush which was recently treated with clotrimazole with mitigation. ALLERGIES: She is allergic to codeine but tolerates oxycodone. She has no hives but intermittent pruritus which responds to Atarax. FAMILY HISTORY: Notable for father passing away at age 97 from a myocardial infarction and mother passing away of consequence to Alzheimers disease. SOCIAL HISTORY: She drinks 2 drinks about every 5 months. She lives in [place] and currently lives with her daughter but did have a home in [place] prior to moving to [place]. She has a 20-pack year smoking history but quit in 2014. CURRENT MEDICATIONS: Include Advair 250/50 mcg inhalation, 1 inhalation b.i.d. Aspirin 81 mg daily. Atorvastatin 80 mg daily. Lyrica 50 mg daily for 2 more days and then to increase to 50 mg b.i.d. Protonix 40 mg in the morning. Oxygen 3 liters by nasal cannula. Spiriva 1 inhalation in the morning. ProAir 2 puffs up to 4 times daily as needed for shortness of breath. Her most recent warfarin dose was 4 mg alternating with 6 mg but INR today was elevated at 5 and had been elevated on January 28 and 4.4. Methimazole 5 mg daily. Oxycodone 5 mg 4 times daily. PHYSICAL EXAMINATION VITAL SIGNS: Temp is 37.3, blood pressure is ranged 140s/40s-60s, heart rate in the 90s and respiratory rate 18. She is satting 92-98% on 3 liters per nasal cannula and states pain as 20/10 but charted as 8-10/10. GENERAL: She is pleasant, does appear in pain when ever she moves her right wrist. There is no jaundice, anemia, cyanosis, clubbing or lymphadenopathy appreciated. NECK: Supple. No masses or bruits are appreciated. She does have scars from prior carotid endarterectomy. There is no bruits over her thyroid. CARDIAC: S1, S2 with soft murmur in the right upper sternal border. Radiation to the right carotid but with persistent or maintained upstroke consistent with aortic sclerosis. RESPIRATORY: Shows good air entry to the bases but prolonged expiratory phase consistent with obstructive lung disease. There is no sacral edema. ABDOMEN: Distended. Tender in the left lower quadrant but no masses are appreciated and no rebound tenderness. EXTREMITIES: Show trace to no edema at her malleoli. She has palpable dorsalis pedal pulses. The left TKA shows well healed scar. No dehiscence. No discharge. There is warmth to palpate over both lateral and medial sides of the left TKA. Right knee shows no warmth nor erythema. Her right wrist is exquisitely tender to movement. There is erythema overlying the skin and warmth. No effusion is appreciated through there is some synovial thickening. ASSESSMENT 1. Edema and erythema of her right wrist. This could be consistent with a gout flare. The patient does not have a history of gout or pseudo gout. Septic joint is also a possibility, as well a flare of her rheumatoid arthritis. I have requested a CBC, CMP, ESR, CRP and uric acid as well as blood cultures, and requested orthopedic referral and discussed care with Dr. Fletcher. I have elevated and iced her right wrist and will place a splint to move wrist into a neutral position this evening. Discussed care with her daughter and will give a dose of Toradol and start Celebrex as well as steroids if sedimentation and CRP are elevated but white count is not suggestive infection. Could also consider colchicine as an adjunct if uric acid is elevated or if the wrist or knee is aspirated and crystals are identified on microscopy. Regarding pain, will continue her usual oxycodone in addition to the Toradol and Celebrex and have written for Dilaudid. The patient states she has tolerated these in the past with some pruritus that is amenable to adjunct use of Atarax. 2. History of hyperthyroidism. Will continue her methimazole. Recent labs show she has persistently elevated free T4s and low TSH. 3. Status post left total knee replacement. Again, mild erythema and warmth over that left knee. Care has been discussed with Dr. Fletcher. X-rays have been requested and inflammatory markers have been sent with low threshold to start empiric antibiotics based on sed rate, CRP and white count. 4. Acute on chronic constipation with a history of irritable bowel syndrome. Will continue the patients usual docusate and have added MiraLax as needed. 5. Emesis with dysphagia. An esophagram is pending. The patient did improve some on Zofran. This will be continued during hospitalization. 6. Mixed COPD, O2 dependent. Usual medications ordered as well oxygen and the patient appears compensated currently. 7. History of rheumatoid arthritis not on disease modifying medications. Will check a CCP and NIVIA in addition to the inflammatory markers above. The patient has been started on steroids. The patient is a full code. Daughter would like patient to remain a swing bed and/or PP stay depending on mobility. Have asked physical therapy to review the patient. She may be ambulatory with a front-wheel walker with a platform for her right wrist. Depending on her level of function and pain control over the next 1-2 days, the patient may transition back to home with home health services that she had been improving versus consideration of swing bed stay or prison placement. Have asked case management to speak with the patient and daughter and review chart as well as liaise with insurance in the morning. MAHENDRA
--- NOTE | 2017-01-31 06:14 | CONSULTATION ---
HISTORY OF PRESENT ILLNESS: The patient is a 81-year-old female who presents complaining of right wrist pain. She has a recent history of a left total knee arthroplasty which is about a month out which was done down in [place] by Dr. Alfonso. She has noticed that her total knee arthroplasty knee has been improving gradually every day. She has not noticed any pain in the knee. The right wrist started hurting a few days ago and she has pain with any motion. PAST MEDICAL HISTORY: Significant for 1. Left total knee replacement. 2. Atrial fibrillation. 3. Hypoxemia. 4. COPD. 5. Insomnia. 6. GERD. 7. Hyperlipidemia. 8. Fibromyalgia. 9. CVA. 10. Rheumatoid arthritis. 11. Emphysema. 12. B12 deficiency. 13. Dysphagia. 14. Neuropathy. 15. Carotid artery stenosis. 16. Low TSH. 17. Coronary artery calcification. 18. Anemia. 19. Hypotension. 20. Urinary tract infection. 21. Urine frequency. ALLERGIES: She has an allergy listed for codeine or codeine derivatives. MEDICATIONS Methimazole. Oxycodone. Omeprazole. Cyanocobalamin. Ondansetron. Advair disk. Nystatin. Oxygen. Atorvastatin. Hydroxyzine pamoate. ProAir HFA. Spiriva. Aspirin. Coumadin. SOCIAL HISTORY: She quit smoking in 2014. BMI is 33. She has a couple of drinks every few months of alcohol. PHYSICAL EXAMINATION: Examination of the Left knee demonstrates a mature scar on the anterior aspect of the knee consistent with the patients history of status post total knee arthroplasty. The patients range of motion is from 0- 100 degrees of flexion. The knee is somewhat warm compared to contralateral which is within normal limits considering the patients recent total knee arthroplasty and she is still working on her range of motion and strengthening. Examination of the right wrist demonstrates erythema and tenderness to palpation with swelling around the wrist. Range of motion is limited and guarded due to pain. Gross motor is intact. The peripheral neurovascular status is intact with normal sensation and adequate perfusion. X-RAYS: Plain film x-rays of the right wrist demonstrate severe arthritic changes of the first carpometacarpal joint and of the first row of the carpus. Plain film x-rays of the knee demonstrate normal appearing and well placed prosthetic implants for a total knee arthroplasty. ASSESSMENT: Right wrist pain. The patients etiology could be infectious, rheumatoid or gout. The patients primary care physician will be working her up to rule out these entities. I do not suspect that her knee is involved with this recent condition of her wrist. A well padded fiberglass brace will be placed on the patients right wrist to immobilize the wrist for pain control. She will need a platform walker on the right. Ice and elevation. Oral analgesia and anti-inflammatories as per medicine. MAHENDRA
[2017-01-31] MEDS: DOCUSATE SODIUM 100 MG CAPSULE PO SCH ×2 (06:27→17:10)
[2017-01-31] MEDS: PANTOPRAZOLE 40 MG TABLET PO SCH (06:27)
[2017-01-31 07:43] LABS: INR 3.8
--- NOTE | 2017-01-31 08:31 | PROGRESS NOTE: IM APSO ---
Assessment and Plan - Date of Encounter Date of Encounter: 01/31/17 (1) Right wrist pain Status: Acute Assessment and plan: improving, elevated crp/esr, wbc up but reassuring differential and with just nsaids/steroid marked improvement. possible gout or ra. ccp and german pending. splinted and appreciated consult Dr. Fletcher greatly. this will affect recovery from tka and may need PT for platform walker. recheck inflammatory markers tomorrow Current Visit: Yes (2) Supratherapeutic INR Status: Acute Assessment and plan: elevated, no bleeding and given low dose vitamin k to partly antagonize. will need warfarin and therapeutic inr as afib risk stroke and dvt prophylaxis as mobility returns. Current Visit: Yes (3) Low TSH level Status: Chronic Assessment and plan: followed by dr tang and dr kern, on maintenance dose of methimazole Current Visit: No (4) Status post total knee replacement, left Status: Acute Current Visit: No (5) H/O: stroke Status: Chronic Current Visit: No (6) Hypoxia Status: Chronic Current Visit: No (7) Atrial fibrillation, controlled Status: Chronic Assessment and plan: paroxysmal, rate controlled without meds and anticoagulated as above Current Visit: No - Time Spent With Patient Total time spent with greater than 50% in coordination of care (as documented) at patient's floor/unit and/or counseling patient: IM: PN Subjective General: good appetite, no fatigue, no anxiety, no depression, no confusion, no fever, no chills Cardiovascular: no chest pain, no chest pressure, no palpitations Respiratory: wheeze (chronic wheeze/cough at baseline), no SOB Gastrointestinal: bloating, constipation, no abdominal pain, no nausea, no vomiting Musculoskeletal: pain, swelling (both pain and swelling improved nocte with nsaids/steroids. uric acid only 5. ccp/german pending and wrist splinted with improvement in discomfort.) IM: PN Objective Exam - I&O/Vital Signs I&O: Intake & Output 01/30/17 01/31/17 01/31/17 21:59 05:59 13:59 Intake Total 1066 Output Total 500 Balance 566 Weight 74.616 kg 75.296 kg Intake: Oral 1066 Output: Urine 500 Other: Urine Appearance Clear Urine Color Yellow Voiding Method Bedpan # Voids 2 # Bowel Movements 0 Vital Signs: Last Vital Signs Temp 36.4 C 01/31/17 06:18 Pulse 82 01/31/17 06:18 Resp 18 01/31/17 06:18 BP 135/53 01/31/17 06:18 Pulse Ox 93 01/31/17 06:18 Oxygen Flow Rate 3 Oxygen Delivery Method Nasal Cannula - Constitutional General appearance: Present: obese - Head Head exam: Present: atraumatic - Eye Eye exam: Present: EOMI. Absent: conjunctival injection - ENT ENT exam: Present: mucous membranes moist - Neck Neck exam: Present: full ROM. Absent: lymphadenopathy - Respiratory Respiratory exam: Present: prolonged expiratory phase, wheezes. Absent: accessory muscle use - Cardiovascular Cardiovascular exam: Present: RRR - GI/Abdominal GI/Abdominal exam: Present: normal bowel sounds, soft - Rectal Rectal exam: Present: deferred - Extremities Exam Extremities exam: Present: other (right wrist and left knee less swollen and erythema abated. Tender still for a/prom largely synovitis). Absent: calf tenderness - Lab Labs: Laboratory Last Values WBC 11.3 X 10^3uL (3.9-10.7) H 01/30/17 18:05 RBC 4.45 X 10^6uL (4.20-6.10) 01/30/17 18:05 Hgb 12.3 g/dL (12.0-16.0) 01/30/17 18:05 Hct 37.3 % (36.0-48.0) 01/30/17 18:05 MCV 83.9 fL (80.0-100.0) 01/30/17 18:05 MCH 27.6 pg (29.0-35.0) L 01/30/17 18:05 MCHC 32.9 g/dL (32.0-36.0) 01/30/17 18:05 RDW 13.8 % (11.5-14.5) 01/30/17 18:05 Plt Count 439 X 10^3uL (130-440) 01/30/17 18:05 MPV 7.8 fL (7.4-10.4) 01/30/17 18:05 Neutrophils % 69.9 % (54.0-75.0) 01/30/17 18:05 Lymphocytes % 13.3 % (20.0-40.0) L 01/30/17 18:05 Eosinophils % 0.3 % (0.0-6.0) 01/30/17 18:05 Basophils % 2.5 % (0.0-2.0) H 01/30/17 18:05 Neutrophils # 7.9 X 10^3uL (2.6-6.7) H 01/30/17 18:05 Lymphocytes # 1.5 X 10^3uL (0.8-3.8) 01/30/17 18:05 Monocytes 14.0 % (2.0-10.0) H 01/30/17 18:05 Monocytes # 1.6 X 10^3uL (0.2-1.0) H 01/30/17 18:05 Eosinophils # 0.0 X 10^3uL (0.0-0.4) 01/30/17 18:05 Basophils # 0.3 X 10^3uL (0.0-0.1) H 01/30/17 18:05 ESR 69 MM/HR (0-20) H 01/30/17 18:05 PT 44.5 sec (13.0-16.6) H 01/31/17 06:10 INR 3.8 D 01/31/17 06:10 Sodium 136 mmol/L (137-145) L 01/30/17 18:05 Potassium 3.5 mmol/L (3.5-5.1) 01/30/17 18:05 Chloride 98 mmol/L (98-107) 01/30/17 18:05 Carbon Dioxide 27 mmol/L (22-30) 01/30/17 18:05 BUN 27 mg/dL (7-17) H 01/30/17 18:05 Creatinine 0.8 mg/dL (0.5-1.0) 01/30/17 18:05 GFR Calculation > 60 mL/min 01/30/17 18:05 Glucose 125 mg/dL (70-100) H 01/30/17 18:05 Uric Acid 5.1 mg/dL (2.5-6.2) 01/30/17 18:05 Calcium 8.9 mg/dL (8.4-10.2) 01/30/17 18:05 Total Bilirubin 0.9 mg/dL (0.2-1.3) 01/30/17 18:05 AST 27 U/L (14-36) 01/30/17 18:05 ALT 27 U/L (9-52) 01/30/17 18:05 Alkaline Phosphatase 86 U/L (38-126) 01/30/17 18:05 C-Reactive Protein 61.2 mg/L (<10.0) H 01/30/17 18:05 Total Protein 7.6 g/dL (6.3-8.2) 01/30/17 18:05 Albumin 3.9 g/dL (3.5-5.0) 01/30/17 18:05 Albumin/Globulin Ratio 1.1 01/30/17 18:05 Quality Questions - VTE Prophylaxis Assessment VTE Present on Admission?: No Patient at risk for venous thromboembolism?: Yes VTE Risk Level: Low Risk VTE Medical Contraindication: Treatment not indicated
[2017-01-31] MEDS: CELECOXIB 100 MG CAPSULE PO SCH ×2 (08:36→17:11)
[2017-01-31] MEDS: POLYETHYLENE GLYCOL 3350 17 GM POWD.PACK PO SCH ×3 (08:37→20:11)
[2017-01-31] MEDS: FLUTICASONE/SALMETEROL 250/50 14 INH DISK INHALATION SCH ×2 (08:37→20:05)
[2017-01-31] MEDS: METHIMAZOLE 5 MG TABLET PO SCH (08:38)
[2017-01-31] MEDS: TIOTROPIUM BROMIDE 18 MCG CAP.W.DEV INHALATION SCH (08:38)
--- NOTE | 2017-01-31 14:55 | PROGRESS NOTE: Orthopedics ---
Orthopedic PN Subjective - Subjective Principal Diagnosis: Right wrist pain Interval history: The patient has had a significant improvement in their symptoms on the right wrist. Ortho PN Objective Exam - Latest Vital Signs and I&O Latest Vital Signs/I&O: Vital Signs Temp 36.6 C 01/31/17 11:00 Pulse 85 01/31/17 11:00 Resp 18 01/31/17 11:00 BP 131/55 01/31/17 11:00 Pulse Ox 95 01/31/17 11:00 Intake & Output 01/30/17 01/31/17 01/31/17 17:59 05:59 17:59 Intake Total 1066 Output Total 500 Balance 566 Weight 74.616 kg 75.296 kg Intake: Oral 1066 Output: Urine 500 Other: Urine Appearance Clear Clear Urine Color Yellow Yellow Voiding Method Bedpan Bedpan # Voids 2 # Bowel Movements 0 - Post-Operative Exam Distal Pulses: +2 Active Motor: intact Sensation: intact Additional Exam: The erythema on the dorsum of the wrist has diminished significantly. Patient has only mild tenderness to palpation over the wrist and is able to flex and extend her wrist with little discomfort as opposed to yesterday when she had excruciating pain with any motion or palpation. Examination of the patient's left knee demonstrates no change in physical exam compared to yesterday with respect to range of motion, palpation,warmth and incision site/scar. - Lab Labs: Laboratory Last Values WBC 11.3 X 10^3uL (3.9-10.7) H 01/30/17 18:05 RBC 4.45 X 10^6uL (4.20-6.10) 01/30/17 18:05 Hgb 12.3 g/dL (12.0-16.0) 01/30/17 18:05 Hct 37.3 % (36.0-48.0) 01/30/17 18:05 MCV 83.9 fL (80.0-100.0) 01/30/17 18:05 MCH 27.6 pg (29.0-35.0) L 01/30/17 18:05 MCHC 32.9 g/dL (32.0-36.0) 01/30/17 18:05 RDW 13.8 % (11.5-14.5) 01/30/17 18:05 Plt Count 439 X 10^3uL (130-440) 01/30/17 18:05 MPV 7.8 fL (7.4-10.4) 01/30/17 18:05 Neutrophils % 69.9 % (54.0-75.0) 01/30/17 18:05 Lymphocytes % 13.3 % (20.0-40.0) L 01/30/17 18:05 Eosinophils % 0.3 % (0.0-6.0) 01/30/17 18:05 Basophils % 2.5 % (0.0-2.0) H 01/30/17 18:05 Neutrophils # 7.9 X 10^3uL (2.6-6.7) H 01/30/17 18:05 Lymphocytes # 1.5 X 10^3uL (0.8-3.8) 01/30/17 18:05 Monocytes 14.0 % (2.0-10.0) H 01/30/17 18:05 Monocytes # 1.6 X 10^3uL (0.2-1.0) H 01/30/17 18:05 Eosinophils # 0.0 X 10^3uL (0.0-0.4) 01/30/17 18:05 Basophils # 0.3 X 10^3uL (0.0-0.1) H 01/30/17 18:05 ESR 69 MM/HR (0-20) H 01/30/17 18:05 PT 44.5 sec (13.0-16.6) H 01/31/17 06:10 INR 3.8 D 01/31/17 06:10 Sodium 136 mmol/L (137-145) L 01/30/17 18:05 Potassium 3.5 mmol/L (3.5-5.1) 01/30/17 18:05 Chloride 98 mmol/L (98-107) 01/30/17 18:05 Carbon Dioxide 27 mmol/L (22-30) 01/30/17 18:05 BUN 27 mg/dL (7-17) H 01/30/17 18:05 Creatinine 0.8 mg/dL (0.5-1.0) 01/30/17 18:05 GFR Calculation > 60 mL/min 01/30/17 18:05 Glucose 125 mg/dL (70-100) H 01/30/17 18:05 Uric Acid 5.1 mg/dL (2.5-6.2) 01/30/17 18:05 Calcium 8.9 mg/dL (8.4-10.2) 01/30/17 18:05 Total Bilirubin 0.9 mg/dL (0.2-1.3) 01/30/17 18:05 AST 27 U/L (14-36) 01/30/17 18:05 ALT 27 U/L (9-52) 01/30/17 18:05 Alkaline Phosphatase 86 U/L (38-126) 01/30/17 18:05 C-Reactive Protein 61.2 mg/L (<10.0) H 01/30/17 18:05 Total Protein 7.6 g/dL (6.3-8.2) 01/30/17 18:05 Albumin 3.9 g/dL (3.5-5.0) 01/30/17 18:05 Albumin/Globulin Ratio 1.1 01/30/17 18:05 Assessment and Plan-Ortho - Date of Encounter Date of Encounter: 01/31/17 (1) Right wrist pain Status: Acute Assessment and plan: Based on the patient's improvement with her current medication treatment and her laboratory results the likelihood of an infectious etiology is very low. I agree with medicine's evaluation and workup to rule out gout versus rheumatoid etiology. The patient may discontinue her volar fiberglass splint tomorrow if she continues to improve at the current rate. Her total knee continues to improve daily. I do not suspect that it is involved in this current pathological process as there are no significant physical exam signs of infection and subjectively the patient states that her knee has continued to improve every day since her first postoperative day. No further orthopedic intervention required at this time. Please reconsult orthopedics as needed. Current Visit: Yes less than 15 minutes Quality Questions - VTE Prophylaxis Assessment VTE Present on Admission?: No Patient at risk for venous thromboembolism?: No VTE Risk Level: Very Low Risk VTE Medical Contraindication: Not needed
[2017-01-31] MEDS: PREGABALIN 50 MG CAPSULE PO SCH (20:05)
[2017-01-31] MEDS: ATORVASTATIN CALCIUIM 40 MG TABLET PO SCH (20:06)
[2017-01-31] MEDS ORDERED: CEFTRIAXONE SODIUM 1,000 MG/10 ML VIAL ONE (20:24)
[2017-01-31] MEDS ORDERED: NORMAL SALINE 100 ML IV ONE (20:25)
[2017-02-01] MEDS: PANTOPRAZOLE 40 MG TABLET PO SCH (06:14)
[2017-02-01] MEDS: DOCUSATE SODIUM 100 MG CAPSULE PO SCH ×2 (06:14→16:57)
[2017-02-01 07:24] LABS: BASOPHIL# 0.2 X 10^3uL (0.0-0.1); BASOPHILS 2.4 % (0.0-2.0); EOSINOPHILS 0.4 % (0.0-6.0); HEMOGLOBIN 11.8 g/dL (12.0-16.0); LYMPHOCYTES 24.1 % (20.0-40.0); LYMPHOCYTES# 2.2 X 10^3uL (0.8-3.8); MEAN CELL VOLUME 85.6 fL (80.0-100.0); MEAN CORPUSCULAR HEMOGLOBIN 27.4 pg (29.0-35.0); MEAN PLATELET VOLUME 8.1 fL (7.4-10.4); MONOCYTES 10.9 % (2.0-10.0); NEUTROPHILS 62.2 % (54.0-75.0); NEUTROPHILS# 5.8 X 10^3uL (2.6-6.7); RED BLOOD COUNT 4.32 X 10^6uL (4.20-6.10); WHITE BLOOD COUNT 9.2 X 10^3uL (3.9-10.7)
[2017-02-01 07:38] LABS: INR 2.2
[2017-02-01 07:57] LABS: C-REACTIVE PROTEIN 63.5 mg/L (<10.0)
--- NOTE | 2017-02-01 08:38 | PROGRESS NOTE: IM APSO ---
Assessment and Plan - Date of Encounter Date of Encounter: 02/01/17 (1) Right wrist pain Status: Acute Assessment and plan: She is gradually recovering from an acute right wrist/hand arthritis. her CRP is stable and her white count is normal now. Other labs are pending, so it is still unclear whether this was gout, pseudogout, or rheumatoid arthritis. Most likely the latter. I removed her splint today. I think she would be able to go home later today or tomorrow morning. Her daughter is working 12 hour days every day, so may not be available to care for her at home. We will coordinate with her today.. I left a message on her answering machine for her to call back and talk to Les. Current Visit: Yes (2) Status post total knee replacement, left Status: Acute Assessment and plan: she is needing keying satisfactory progress with her left knee rehabilitation after her TKA. Current Visit: No (3) Atrial fibrillation, controlled Status: Chronic Assessment and plan: appropriately anticoagulated today with an INR of 2.2. Prior to admission she was on 2 mg daily with a supra therapeutic INR. Will restart her on 1 mg daily today. Current Visit: No (4) Supratherapeutic INR Status: Acute Assessment and plan: resolved. Refer to the section on atrial fibrillation Current Visit: Yes - Time Spent With Patient Total time spent with greater than 50% in coordination of care (as documented) at patient's floor/unit and/or counseling patient: IM: PN Subjective General: good appetite, no fatigue, no anxiety, no depression, no confusion, no fever, no chills Cardiovascular: no chest pain, no chest pressure, no palpitations Respiratory: no wheeze, no SOB Gastrointestinal: constipation, no abdominal pain, no bloating, no nausea, no vomiting Musculoskeletal: pain (R hand - mild now), swelling (minimal in R hand/wrist) IM: PN Objective Exam - I&O/Vital Signs I&O: Intake & Output 01/31/17 02/01/17 02/01/17 21:59 05:59 13:59 Intake Total 1800 665 Balance 1800 665 Weight 75.75 kg Intake: IV 0 Right Forearm 0 Oral 1800 665 Other: Urine Appearance Clear Clear Urine Color Pale Yellow Stool Size Moderate Stool Characteristics Soft Voiding Method Toilet Toilet # Voids 5 1 Vital Signs: Last Vital Signs Temp 36.4 C 03/11/17 06:16 Pulse 83 02/01/17 06:16 Resp 18 02/01/17 06:16 BP 147/50 02/01/17 06:16 Pulse Ox 93 02/01/17 06:16 Oxygen Flow Rate 3 Oxygen Delivery Method Nasal Cannula - Constitutional General appearance: Present: obese - Head Head exam: Present: atraumatic - Eye Eye exam: Absent: conjunctival injection - ENT ENT exam: Present: mucous membranes moist - Respiratory Respiratory exam: Present: rales (transient in L base. Cleared with deep breathing.). Absent: accessory muscle use - Cardiovascular Cardiovascular exam: Present: RRR - GI/Abdominal GI/Abdominal exam: Present: hypoactive bowel sounds, soft. Absent: tenderness - Extremities Exam Extremities exam: Present: other (Her right hand and wrist have some slight warmth and swelling, but no tenderness. She has moderate stiffness there. her left knee has range of motion from 0-90. Posteriorly there are 3 tiny superficial abrasions without signs of infection.). Absent: calf tenderness - Neurological Exam Neurological exam: Present: oriented X3 - Allied Health Notes Allied health notes reviewed: case management, nursing, PT - Lab Labs: Laboratory Last Values WBC 9.2 X 10^3uL (3.9-10.7) 02/01/17 06:30 RBC 4.32 X 10^6uL (4.20-6.10) 02/01/17 06:30 Hgb 11.8 g/dL (12.0-16.0) L 02/01/17 06:30 Hct 37.0 % (36.0-48.0) 02/01/17 06:30 MCV 85.6 fL (80.0-100.0) 02/01/17 06:30 MCH 27.4 pg (29.0-35.0) L 02/01/17 06:30 MCHC 32.0 g/dL (32.0-36.0) 02/01/17 06:30 RDW 14.0 % (11.5-14.5) 02/01/17 06:30 Plt Count 465 X 10^3uL (130-440) H 02/01/17 06:30 MPV 8.1 fL (7.4-10.4) 02/01/17 06:30 Neutrophils % 62.2 % (54.0-75.0) 02/01/17 06:30 Lymphocytes % 24.1 % (20.0-40.0) 02/01/17 06:30 Eosinophils % 0.4 % (0.0-6.0) 02/01/17 06:30 Basophils % 2.4 % (0.0-2.0) H 02/01/17 06:30 Neutrophils # 5.8 X 10^3uL (2.6-6.7) 02/01/17 06:30 Lymphocytes # 2.2 X 10^3uL (0.8-3.8) 02/01/17 06:30 Monocytes 10.9 % (2.0-10.0) H 02/01/17 06:30 Monocytes # 1.0 X 10^3uL (0.2-1.0) 02/01/17 06:30 Eosinophils # 0.0 X 10^3uL (0.0-0.4) 02/01/17 06:30 Basophils # 0.2 X 10^3uL (0.0-0.1) H 02/01/17 06:30 ESR 80 MM/HR (0-20) H 02/01/17 06:30 PT 27.5 sec (13.0-16.6) H 02/01/17 06:30 INR 2.2 D 02/01/17 06:30 Sodium 136 mmol/L (137-145) L 01/30/17 18:05 Potassium 3.5 mmol/L (3.5-5.1) 01/30/17 18:05 Chloride 98 mmol/L (98-107) 01/30/17 18:05 Carbon Dioxide 27 mmol/L (22-30) 01/30/17 18:05 BUN 27 mg/dL (7-17) H 01/30/17 18:05 Creatinine 0.8 mg/dL (0.5-1.0) 01/30/17 18:05 GFR Calculation > 60 mL/min 01/30/17 18:05 Glucose 125 mg/dL (70-100) H 01/30/17 18:05 Uric Acid 5.1 mg/dL (2.5-6.2) 01/30/17 18:05 Calcium 8.9 mg/dL (8.4-10.2) 01/30/17 18:05 Total Bilirubin 0.9 mg/dL (0.2-1.3) 01/30/17 18:05 AST 27 U/L (14-36) 01/30/17 18:05 ALT 27 U/L (9-52) 01/30/17 18:05 Alkaline Phosphatase 86 U/L (38-126) 01/30/17 18:05 C-Reactive Protein 63.5 mg/L (<10.0) H 02/01/17 06:30 Total Protein 7.6 g/dL (6.3-8.2) 01/30/17 18:05 Albumin 3.9 g/dL (3.5-5.0) 01/30/17 18:05 Albumin/Globulin Ratio 1.1 01/30/17 18:05
[2017-02-01] MEDS: METHIMAZOLE 5 MG TABLET PO SCH (08:53)
[2017-02-01] MEDS: PREGABALIN 50 MG CAPSULE PO SCH ×2 (08:53→20:26)
[2017-02-01] MEDS: CELECOXIB 100 MG CAPSULE PO SCH ×2 (08:53→17:02)
[2017-02-01] MEDS: FLUTICASONE/SALMETEROL 250/50 14 INH DISK INHALATION SCH ×2 (08:54→20:26)
[2017-02-01] MEDS: TIOTROPIUM BROMIDE 18 MCG CAP.W.DEV INHALATION SCH (08:54)
[2017-02-01] MEDS: POLYETHYLENE GLYCOL 3350 17 GM POWD.PACK PO SCH ×2 (08:54→20:21)
[2017-02-01] MEDS ORDERED: WARFARIN SODIUM 2 MG TABLET PO SCH (16:00)
[2017-02-01] MEDS: ATORVASTATIN CALCIUIM 40 MG TABLET PO SCH (20:25)
[2017-02-02] MEDS: PANTOPRAZOLE 40 MG TABLET PO SCH (05:31)
[2017-02-02] MEDS: DOCUSATE SODIUM 100 MG CAPSULE PO SCH (05:31)
[2017-02-02 06:21] VITALS: RESP 18
[2017-02-02 06:40] LABS: INR 1.5
[2017-02-02] MEDS: METHIMAZOLE 5 MG TABLET PO SCH (08:18)
[2017-02-02] MEDS: CELECOXIB 100 MG CAPSULE PO SCH (08:18)
[2017-02-02] MEDS: TIOTROPIUM BROMIDE 18 MCG CAP.W.DEV INHALATION SCH (08:19)
[2017-02-02] MEDS: FLUTICASONE/SALMETEROL 250/50 14 INH DISK INHALATION SCH (08:19)
[2017-02-02] MEDS: PREGABALIN 50 MG CAPSULE PO SCH (08:19)
[2017-02-02] MEDS: POLYETHYLENE GLYCOL 3350 17 GM POWD.PACK PO SCH (10:25)
--- NOTE | 2017-02-02 10:48 | DC SUMMARY: IM Note ---
Discharge Summary: IM/Peds Provider: Date of Admission: 01/30/17 Admitting Provider: DAVID ANDREW Attending Provider: TRUDY SOLITARIO Discharging Provider: TIARRA HDZ MD Primary Care Provider: Discharge Date: 02/02/17 - Diagnosis (1) Right wrist pain Status: Acute (2) Status post total knee replacement, left Status: Acute (3) Atrial fibrillation, controlled Status: Chronic (4) Supratherapeutic INR Status: Acute (5) Dementia without behavioral disturbance Status: Acute Qualifiers: Dementia type: unspecified type Qualified Code(s): F03.90 - Unspecified dementia without behavioral disturbance Hospital Course: This 81-year-old patient of Dr. Solitario's was admitted to [facility] on 01/30/17 for acute right wrist arthritis complicating her postoperative course for left total knee replacement. She also has some mild chronic memory loss making her care more complicated. She was placed on both Celebrex 100 mg twice a day and prednisone 30 mg daily. She defervesced nicely on this and by the time of discharge had very minimal pain and swelling in the right wrist. At that point she was able to use a standard walker without problems, and she was ambulating well with that. Her arthritis studies were still pending, so it is unclear what triggered the acute arthritis. Possibilities include pseudogout, RA, or gout. Dr. Fletcher consulted and felt that this was unlikely to be septic joint , and she defervesced without antibiotics. Her L knee is doing well. I spoke by phone with her daughter, who is her main caregiver. She plans on picking up the patient today after 4 PM when she gets off of work. She requested that patient continue on home physical and occupational therapy, which she was doing prior to admission. She also has atrial fibrillation and was excessively anticoagulated on admission. Her INR the day prior to discharge is 2.2, but had dropped down to 1.5 on the date of discharge. Prior to admission she was taking 6 mg of warfarin twice a week and 4 mg all other days. I will decrease her to 3 mg daily. Home health should check an INR level in 2-3 days. The patient should follow up with Dr. Solitario in 3-4 days. I will stop her Celebrex and place her on a one-week taper of prednisone. If her wrist begins to flare again, she will need to be placed back on Celebrex. I am concerned about the risk for potential GI bleeding given the fact that she is on both warfarin and aspirin. She did not have any epigastric pain during the admission nor any signs of GI bleeding. I will stop her daily aspirin but continue the warfarin. She is followed by Dr. Montesinos, who had her on warfarin without aspirin. She is scheduled to follow-up with orthopedics (Dr. Julien) on 02/[address] Montesinos on 03/04. - Time Spent with Patient Total time spent providing and/or coordinating discharge services: Discharge - Patient/Caregiver Discharge Instructions Activity Level: ambulate as tolerated with the walker at home, at least until reevaluated by PT from [facility]. Diet: regular Additional Instructions: See Dr. Jluien on 02/04 at 11:15. Restart [facility] from [facility] including PT, OT and nursing (INR check on 02/05) Follow up: ASHLEY MONTESINOS MD [MD] - 03/04/17 10:20 am TRUDY SOLITARIO DO [Primary Care Provider] - 3 Days Overall discharge status: patient is back to baseline Home Medications: prednisone [Deltasone*] 10 - 20 mg PO DAILY #7 tablet Disposition: HOME, SELF-CARE Discharge Summary Data - Medication History Medication History: Home Medications Acetaminophen [Tylenol*] 325 mg PO Q6H PRN 01/16/17 Albuterol Hfa [Proventil Inhaler*] 2 puff IH Q4H PRN 01/16/17 Fluticasone/Salmeterol 250/50 [Advair 250/50 Diskus*] 1 puff INHALATION BID Methimazole 5 mg PO DAILY 01/16/17 Omeprazole 20 mg PO BEFORE BREAKFAST 01/16/17 Ondansetron HCl [Zofran] 4 mg PO Q8H PRN 01/16/17 Tiotropium Easley [Spiriva*] 18 mcg INHALATION DAILY 01/16/17 hydrOXYzine HCL [Hydroxyzine HCl*] 25 mg PO BID PRN 01/16/17 Mag-Al Plus Xs Susp [Maalox Suspension*] 5 ml PO Q2H PRN #0 udc 01/21/17 Magnesium Hydroxide [Milk of Magnesia*] 30 ml PO DAILY PRN #0 udc 01/21/17 oxyCODONE HCL IR [Oxy Ir*] 5 mg PO QID PRN #30 tablet 01/23/17 Atorvastatin Calcium [Lipitor*] 80 mg PO HS 01/30/17 Cyanocobalamin [Vitamin B-12*] 1 ml IM DIRECTED 01/30/17 Docusate Sodium [Colace*] 200 mg PO HS 01/30/17 Pregabalin [Lyrica*] 50 mg PO DIRECTED 01/30/17 Warfarin Sodium [Coumadin*] 0 mg PO ONCE DAILY @1600 01/30/17 Inpatient Medications 01/30/17 17:02 Albuterol Hfa [Proventil Hfa Inhaler] 2 inh INHALATION PRN PRN hydrOXYzine HCL [Atarax] 25 mg PO Q6H PRN 01/30/17 17:06 oxyCODONE HCL IR [Oxy Ir] 5 mg PO Q3H PRN 01/30/17 17:30 Docusate Sodium [Colace] 100 mg PO Q12H 01/30/17 21:00 Atorvastatin Calcium [Lipitor] 80 mg PO HS Fluticasone/Salmeterol 250/50 [Advair 250/50 Diskus] 1 inh INHALATION BID Polyethylene Glycol 3350 [miraLAX] 17 gm PO BID 01/31/17 06:30 Pantoprazole [Protonix] 40 mg PO BEFORE BREAKFAST 01/31/17 09:00 Methimazole [Tapazole] 5 mg PO DAILY Tiotropium Easley [Spiriva] 18 mcg INHALATION DAILY 02/01/17 09:00 Pregabalin [Lyrica] 50 mg PO BID aspirin CHEW [Baby Aspirin Chewable] 81 mg PO DAILY 02/02/17 11:00 Acetaminophen ER [Tylenol ER] 650 mg PO TID 02/02/17 16:00 Warfarin Sodium [Coumadin] 3 mg PO ONCE DAILY @1600 02/03/17 09:00 prednisone [Deltasone] 20 mg PO DAILY Procedures and tests throughout hospitalization: Completed Lab Orders 01/30/17 18:05 C-REACTIVE PROTEIN [CHEM] Routine CBC AUTO DIF, MDIF/RMOR IF IND [HEM] Routine COMPREHENSIVE METABOLIC PANEL [CHEM] Routine ERYTHROCYTE SEDIMENTATION RATE [HEM] Routine URIC ACID [CHEM] Routine 01/31/17 06:10 PT/INR [PROTIME/INR] [HEM] AMDRAW 02/01/17 06:30 CBC AUTO DIF, MDIF/RMOR IF IND [HEM] AMDRAW ERYTHROCYTE SEDIMENTATION RATE [HEM] AMDRAW PT/INR [PROTIME/INR] [HEM] AMDRAW crp arthritis [C-REACTIVE PROTEIN] [CHEM] AMDRAW 02/02/17 05:55 PT/INR [PROTIME/INR] [HEM] AMDRAW Completed Imaging Orders 01/30/17 16:59 KNEE; [address] [place] [id number] [RAD] Stat Pending Orders 01/30/17 17:02 Albuterol Hfa [Proventil Hfa Inhaler] 2 inh INHALATION PRN PRN hydrOXYzine HCL [Atarax] 25 mg PO Q6H PRN 01/30/17 17:06 oxyCODONE HCL IR [Oxy Ir] 5 mg PO Q3H PRN 01/30/17 17:11 Oxygen by Nasal Cannula 3 L/MIN 01/30/17 17:13 Apply ice to affected area . Elevate affected extremity . Miscellaneous Care Order . 01/30/17 17:30 Docusate Sodium [Colace] 100 mg PO Q12H 01/30/17 18:05 ANTI NUCLEAR ANTIBODY [SEND] Routine CYCLIC CITRULLINATED PEPT AB [SEND] Routine 01/30/17 18:59 BLOOD CULTURE [BC] Stat 01/30/17 20:13 BLOOD CULTURE [BC] Stat 01/30/17 21:00 Atorvastatin Calcium [Lipitor] 80 mg PO HS Fluticasone/Salmeterol 250/50 [Advair 250/50 Diskus] 1 inh INHALATION BID Polyethylene Glycol 3350 [miraLAX] 17 gm PO BID 01/31/17 06:30 Pantoprazole [Protonix] 40 mg PO BEFORE BREAKFAST 01/31/17 09:00 Methimazole [Tapazole] 5 mg PO DAILY Tiotropium Easley [Spiriva] 18 mcg INHALATION DAILY 01/31/17 11:52 Physical Therapy Plan of Care [PT] Routine 02/01/17 09:00 Pregabalin [Lyrica] 50 mg PO BID aspirin CHEW [Baby Aspirin Chewable] 81 mg PO DAILY 02/01/17 09:59 Occupational Therapy Plan of Care [OT] Routine 02/02/17 11:00 Acetaminophen ER [Tylenol ER] 650 mg PO TID 02/02/17 16:00 Warfarin Sodium [Coumadin] 3 mg PO ONCE DAILY @1600 02/03/17 09:00 prednisone [Deltasone] 20 mg PO DAILY Labs on day of discharge: Labs from last 24 hours 02/02/17 05:55 PT 20.1 H INR 1.5 Preliminary micro results at discharge 01/30/17 20:13 Blood Culture - Preliminary Blood NO GROWTH TO DATE 01/30/17 18:59 Blood Culture - Preliminary Blood NO GROWTH TO DATE IM: Discharge Physical Exam - I&O/Vital Signs I&O: Intake & Output 02/01/17 02/02/17 02/02/17 20:59 05:59 13:59 Intake Total Output Total Balance Weight Intake: Oral Output: Urine Other: Stool Size Stool Characteristics Voiding Method # Voids # Bowel Movements Vital Signs: Last Vital Signs Temp 36.4 C 02/02/17 06:19 Pulse 70 02/02/17 06:19 Resp 18 02/02/17 06:19 BP 128/42 02/02/17 06:19 Pulse Ox 97 02/02/17 06:19 Oxygen Flow Rate 3 Oxygen Delivery Method Nasal Cannula - Constitutional General appearance: Present: obese - Head Head exam: Present: atraumatic - Eye Eye exam: Absent: conjunctival injection - ENT ENT exam: Present: mucous membranes moist - Neck Neck exam: Present: full ROM. Absent: lymphadenopathy - Respiratory Respiratory exam: Present: clear - Cardiovascular Cardiovascular exam: Present: irregular rhythm, other (normal rate) - GI/Abdominal GI/Abdominal exam: Present: hypoactive bowel sounds, soft. Absent: tenderness - Rectal Rectal exam: Present: other (had a BM this AM) - Extremities Exam Extremities exam: Present: other (Her right hand and wrist cool with very slight tenderness and swelling @ the distal ulna. She has moderate stiffness there. her left knee has range of motion from 0-90. Posteriorly there are 3 tiny superficial abrasions without signs of infection.). Absent: calf tenderness, joint swelling - Neurological Exam Neurological exam: Present: alert (oriented to person and place. Long-term memory is intact, but short-term memory is mildly decreased.) - Psychiatric Psychiatric exam: Present: normal mood - Skin Skin exam: Absent: rash - Allied Health Notes Allied health notes reviewed: nursing, PT
[2017-02-02] MEDS ORDERED: ACETAMINOPHEN ER 650 MG TAB.SR.8HR PO SCH (11:00)
[2017-02-02 12:44] VITALS: BP 132/66; PULSE 76; TEMP 98; O2SAT 95
[2017-02-02] MEDS: ACETAMINOPHEN ER 650 MG TAB.SR.8HR PO SCH ×2 (12:45→16:38)
[2017-02-02] MEDS ORDERED: WARFARIN SODIUM 2 MG TABLET PO SCH (16:00)
[2017-02-03 14:10] LABS: CYCLIC CITRULLINATED PEPT AB SEE COMMENTS (())
== END 2017-02-02 17:30 | disposition home health service (06) ==
LOC: ER 13:01 → IN 14:50
PROVIDERS: ADMIT Hospitalist; ATTEND Family Medicine
DX: M25.531 Pain in right wrist (principal); J43.9 Emphysema, unspecified; I48.2 Chronic atrial fibrillation; J44.9 Chronic obstructive pulmonary disease, unspecified; B37.0 Candidal stomatitis; E05.90 Thyrotoxicosis, unspecified without thyrotoxic crisis or storm; K58.1 Irritable bowel syndrome with constipation; M79.7 Fibromyalgia; F03.90 Unspecified dementia, unspecified severity, without behavioral disturbance, psychotic disturbance, mood disturbance, and anxiety; M06.89 Other specified rheumatoid arthritis, multiple sites; I25.10 Atherosclerotic heart disease of native coronary artery without angina pectoris; K21.9 Gastro-esophageal reflux disease without esophagitis; R13.10 Dysphagia, unspecified; E78.5 Hyperlipidemia, unspecified; Z86.73 Personal history of transient ischemic attack (TIA), and cerebral infarction without residual deficits; Z85.42 Personal history of malignant neoplasm of other parts of uterus; Z96.652 Presence of left artificial knee joint; Z79.01 Long term (current) use of anticoagulants; Z99.81 Dependence on supplemental oxygen
CPT/HCPCS: 36415; 80053; 84550; 85025; 85610; 85651; 86039; 86140; 86200; 87040; 96372; 96374; 96375; 99285; G0378; G8978; G8979; J0696; J1170; J1885; J2405; J3430; J7512

== ENCOUNTER 2017-03-24 13:40 | Emergency (ER) | payer MEDICARE ==
[2017-03-24] MEDS ORDERED: oxyCODONE/APAP 5/325 MG PREPAC 1 TAB TABLET PO ONE (14:19)
[2017-03-24] MEDS ORDERED: traMADol HCL 50 MG TABLET PO ONE (14:19)
[2017-03-24] MEDS ORDERED: ACETAMINOPHEN 325 MG TABLET PO ONE (14:23)
--- NOTE | 2017-03-24 15:21 | ER NURSING DOCUMENTATION ---
Nurse's Notes [facility] Name:Kira Rivera Age:81 yrs Sex:Female :1935 Arrival Date:03/24/2017 Time:13:40 Bed6 Private MD:Mariela Will Diagnosis:Myofascial Cervical Strain Presentation: 03/24 13:53 Presenting complaint: EMS states: Had a "coughing fit" and "threw her neck out". Has rs chronic pain in her knees and hips which she takes tramadol and Percocet for. These medications are not relieving her new neck and shoulder pain. Her daughter is here with her. No IV started. Transition of care: Home. Notified ED Physician of patient's arrival and CC Dr. Fajardo notified. 13:53 Acuity: YOMAIRA 3 rs 13:53 Method Of Arrival: EMS: 410 rs Triage Assessment: 14:00 General: Appears in no apparent distress, well developed, well nourished, well groomed, rs Behavior is cooperative, pleasant. Pain: Complains of pain in neck, shoulders. Neuro: No deficits noted. Level of Consciousness is awake, alert, Oriented to person, place, time, event. Cardiovascular: No deficits noted. Capillary refill < 3 seconds Pulses are 3+ in right radial artery. Respiratory: Respiratory effort is even, unlabored, Respiratory pattern is regular, symmetrical, O2 on at 3 L per nc. Derm: No deficits noted. Skin is intact, Skin is pink, warm & dry. Musculoskeletal: No deficits noted. Circulation, motion, and sensation intact Capillary refill < 3 seconds. Historical: - Allergies: Codeine; - Home Meds: 1. Cholesterol med 2. Oxygen 3. Fibromyalgia med - PMHx: Hemarthrosis (January 30, 2017); FIBROMYALGIA; HIGH CHOLESTEROL; COPD; Shoulder Contusion (November 16, 2016); Myofascial Cervical Strain (November 16, 2016); - PSHx: Craniotomy X2 for anureysm; Carotid clamp; Total knee; CARPAL TUNNEL REPAIR; Back surgery; - Tetanus: unknown. - Ebola Screening: : Patient negative for fever greater than or equal to 101.5 degrees Fahrenheit, and additional compatible Ebola Virus Disease symptoms. Patient denies exposure to infectious person. Patient denies travel to an Ebola-affected area in the 21 days before illness onset. No symptoms or risks identified at this time. . - Immunization history: Unable to Obtain. - Social history: Smoking status: Patient states former smoker of tobacco. Screenin:04 Infectious Disease Risk None. Abuse screen: Denies threats or abuse. Nutritional rs screening: No deficits noted. Assessment: 14:04 See Triage Assessment done by same RN. Vital Signs: 14:02 BP 153 / 55; Pulse 92; Resp 20; Temp 97.6; Pulse Ox 94% on 3 lpm NC; Pain 6/10; rs ED Course: 13:50 Patient arrived in ED. omari 13:50 Mariela Will DO is Private Physician. omari 13:51 Howie Fajardo MD is Attending Physician. sc 13:53 Brenda Hung RN is Primary Nurse. rs 13:55 Mariela Will DO is Referral Physician. sc 13:57 Triage completed. rs 14:03 Family accompanied patient. rs 14:04 Patient has correct armband on for positive identification. Bed in low position. Call rs light in reach. Side rails up X2. Adult w/ patient. Noise minimized. Visitors limited. Lights dimmed. Verbal reassurance given. Warm blanket given. 14:36 Labs drawn. By Lab Staff Pt requests to have routine INR and TSH drawn while she is in ER. Administered Medications: 14:10 Drug: traMADol 50 mg; Route: PO; rs 14:10 Drug: oxyCODONE 5 mg, Acetaminophen 325 mg; Route: PO; rs Outcome: 13:55 Discharge ordered by . sc 15:21 Patient left the ED. sc1 Signatures: Brenda Hung RN RN rs Nelli Higgins RN RN sc1 Howie Fajardo MD MD wv Aleksandra Albarran, Reg Reg omari
--- NOTE | 2017-03-24 15:21 | ER PHYSICIAN DOCUMENTATION ---
Physician Documentation [facility] Name:Kira Rivera Age:81 yrs Sex:Female :1935 Arrival Date:03/24/2017 Time:13:40 Bed6 Private MD:Mariela Will ED, [place] Disposition: 03/24/17 13:55 Discharged to Home/Self Care. Impression: Myofascial Cervical Strain. - Condition is Good. - Discharge Instructions: NECK SPRAIN/STRAIN, Ache - CHRONIC PAIN. - Prescriptions for Tramadol 50 mg Oral Tablet - take 1 tablet by ORAL route every 8 hours as needed; 12 tablet. oxycodone- acetaminophen 5-325 mg Oral tablet - take 1 tablet by ORAL route every 4-6 hours; 6 tablet. - Medical Reconciliation form form. - Follow up: Mariela Will DO; When: 1 - 2 days; Reason: Continuance of care. - Problem is an acute exacerbation. - Symptoms have improved. HPI: 03/24 13:51 This 81 yrs old Female presents to ER with complaints of Neck Pain, >24Hrs sc Old. 13:51 This 81 yrs old Female presents to ER with complaints of Neck Pain, >24Hrs sc Old. 13:51 The patient or guardian complains of pain, that is chronic. The symptoms are located at sc the C1, C2, C3, C4, C5, C6 and C7. Onset: The symptom(s)/episode began/occurred 2 day(s) ago, at an unknown time. and became worse. Context: The problem was sustained at home, The neck injury/problem resulted from sneezing. Associated signs and symptoms: Pertinent negatives: chills, fever, headache, bladder incontinence, bowel incontinence. The pain does not radiate. Historical: - Allergies: Codeine; - Home Meds: 1. Cholesterol med 2. Oxygen 3. Fibromyalgia med - PMHx: Hemarthrosis (January 30, 2017); FIBROMYALGIA; HIGH CHOLESTEROL; COPD; Shoulder Contusion (November 16, 2016); Myofascial Cervical Strain (November 16, 2016); - PSHx: Craniotomy X2 for anureysm; Carotid clamp; Total knee; CARPAL TUNNEL REPAIR; Back surgery; - Tetanus: unknown. - Ebola Screening: : Patient negative for fever greater than or equal to 101.5 degrees Fahrenheit, and additional compatible Ebola Virus Disease symptoms. Patient denies exposure to infectious person. Patient denies travel to an Ebola-affected area in the 21 days before illness onset. No symptoms or risks identified at this time. . - Immunization history: Unable to Obtain. - Social history: Smoking status: Patient states former smoker of tobacco. ROS: 13:53 Constitutional: Negative for fever, chills, and weight loss. sc Eyes: Negative for injury, pain, redness, and discharge. ENT: Negative for injury, pain, and discharge. Cardiovascular: Negative for chest pain, palpitations, and edema. Respiratory: Negative for shortness of breath, cough, wheezing, and pleuritic chest pain. Abdomen/GI: Negative for abdominal pain, nausea, vomiting, diarrhea, and constipation. Back: Negative for injury and pain. MS/Extremity: Negative for injury and deformity. Skin: Negative for injury, rash, and discoloration. 13:53 Neuro: Negative for headache, weakness, numbness, tingling, and seizure. sc 13:53 Neck: Positive for pain with movement, pain at rest. Exam: Constitutional: This is a well developed, well nourished patient who is awake, alert, and in no acute distress. Head/Face: Normocephalic, atraumatic. Eyes: Pupils equal round and reactive to light, extra-ocular motions intact. Lids and lashes normal. Conjunctiva and sclera are non-icteric and not injected. Cornea within normal limits. Periorbital areas with no swelling, redness, or edema. ENT: Nares patent. No nasal discharge, no septal abnormalities noted. Tympanic membranes are normal and external auditory canals are clear. Oropharynx with no redness, swelling, or masses, exudates, or evidence of obstruction, uvula midline. Mucous membranes moist. Neck: Trachea midline, no thyromegaly or masses palpated, and no cervical lymphadenopathy. Supple, full range of motion without nuchal rigidity, or vertebral point tenderness. No meningismus. Chest/axilla: Normal chest wall appearance and motion. Nontender with no deformity. No lesions are appreciated. Cardiovascular: Regular rate and rhythm with a normal S1 and S2. No gallops, murmurs, or rubs. Normal PMI, no JVD. No pulse deficits. Respiratory: Lungs have equal breath sounds bilaterally, clear to auscultation and percussion. No rales, rhonchi or wheezes noted. No increased work of breathing, no retractions or nasal flaring. Abdomen/GI: Soft, non-tender, with normal bowel sounds. No distension or tympany. No guarding or rebound. No evidence of tenderness throughout. Back: No spinal tenderness. No costovertebral tenderness. Full range of motion. 13:54 Skin: Warm, dry with normal turgor. Normal color with no rashes, no lesions, and no sc evidence of cellulitis. 13:54 Head/face: Exam is negative for acute changes, obvious evidence of injury or deformity, abrasion(s), galvan signs. 13:54 ENT: TM's: are normal, Nose: is normal. 13:54 Neck: External neck: is normal, C-spine: Nexus Criteria: Nexus criteria: no cervical midline tenderness, patient is not intoxicated, mental status is normal, no focal/neurologic deficits, and no painful distracting injuries are present, vertebral tenderness, is not appreciated, ROM/movement: limited range of motion, that is mild, in any direction. 13:56 Neuro: Motor: is normal, Sensation: is normal, Gait: is steady, Deep tendon reflexes sc are 2+ (normal) in the bilateral brachioradialis, bicep, tricep and patellar and Achilles tendons, Babinski testing is normal. Vital Signs: 14:02 BP 153 / 55; Pulse 92; Resp 20; Temp 97.6; Pulse Ox 94% on 3 lpm NC; Pain 6/10; rs MDM: 13:51 Patient medically screened. vt 13:54 Differential diagnosis: cervical strain. Data reviewed: vital signs, nurses notes, old [facility] medical records, and as a result, I will discharge patient. Counseling: I had a detailed discussion with the patient and/or guardian regarding: the historical points, exam findings, and any diagnostic results supporting the discharge/admit diagnosis, the need for outpatient follow up, to return to the emergency department if symptoms worsen or persist or if there are any questions or concerns that arise at home. Dispensed Medications: 14:10 Drug: traMADol 50 mg; Route: PO; rs 14:10 Drug: oxyCODONE 5 mg, Acetaminophen 325 mg; Route: PO; rs Signatures: Brenda Hung RN RN rs Nelli Higgins, RONAL RN sc1 Howie Fajardo MD MD vt
== END 2017-03-24 15:21 | disposition home or self-care (01) ==
LOC: ER 13:40
DX: S16.1XXA Strain of muscle, fascia and tendon at neck level, initial encounter (principal); X50.0XXA Overexertion from strenuous movement or load, initial encounter; Y92.019 Unspecified place in single-family (private) house as the place of occurrence of the external cause; M79.7 Fibromyalgia; Z79.899 Other long term (current) drug therapy; Z74.3 Need for continuous supervision
CPT/HCPCS: 99283; A0425; A0429